=== PATIENT | male | born 1950 | race Caucasian/White ===

== ENCOUNTER 2017-04-10 18:27 | Emergency (ER) | payer OTHER ==
--- NOTE | 2017-04-10 19:22 | ER Document Report ---
ED Medical Screen (RME) - General Chief Complaint: Abnormal Lab Results Stated Complaint: ABNORMAL LABS Time Seen by Provider: 04/10/17 19:07 Mode of Arrival: Ambulatory Information source: Patient Notes: Patient had routine labs drawn at [facility] in [place] in preparation for cardiac catheterization at the [facility] next week. He was called by the apron worker on his way home and told that his hemoglobin was 7 no she go to emergency department immediately to be evaluated for possibly life-threatening bleeding. Patient reports she's had shortness of breath with exertion and generalized weakness gradually worsening for at least 3 months. Patient reports about 6 months ago he was on hospice and palliative care for what sounds like an end- stage cardiac myopathy and cirrhosis reports he got better and is not on hospice anymore. He reports apron worker with thinking he might need multiple cardiac stents placed. He reports has not had any blood work done in several months. He denies hematemesis, mattress, melena, chest pain, or abdominal pain. Not aware of any bleeding anywhere Physical exam Well-developed well-nourished male alert tachypnea, talking Skin warm and dry Ambulates with walker with no assistance TRAVEL OUTSIDE OF THE [place] IN LAST 30 DAYS: No - Related Data Allergies/Adverse Reactions: No Known Allergies Allergy (Unverified 09/23/16 01:06) Past Medical History - Past Medical History Cardiac Medical History: Reports: Hx Congestive Heart Failure, Hx Hypercholesterolemia, Hx Peripheral Vascular Disease Denies: Hx DVT, Hx Heart Attack, Hx Pulmonary Embolism Pulmonary Medical History: Denies: Hx Asthma, Hx COPD Neurological Medical History: Denies: Hx Seizures Endocrine Medical History: Denies: Hx Diabetes Mellitus Type 1, Hx Diabetes Mellitus Type 2, Hx Hyperthyroidism, Hx Hypothyroidism Renal/ Medical History: Denies: Hx Peritoneal Dialysis GI Medical History: Reports: Hx Cirrhosis - ETOH, Hx Gastroesophageal Reflux Disease. Denies: Hx Hepatitis Musculoskeltal Medical History: Denies Hx Arthritis Psychiatric Medical History: Reports: Hx Post Traumatic Stress Disorder Infectious Medical History: Denies: Hx Hepatitis - Immunizations Hx Diphtheria, Pertussis, Tetanus Vaccination: Yes Physical Exam - Vital signs Vitals: Temp Pulse Resp BP Pulse Ox 98.0 F 94 20 98/68 L 97 04/10/17 18:55 04/10/17 18:55 04/10/17 18:55 04/10/17 18:55 04/10/17 18:55 Course - Vital Signs Vital signs: Temp Pulse Resp BP Pulse Ox 98.0 F 94 20 98/68 L 97 04/10/17 18:55 04/10/17 18:55 04/10/17 18:55 04/10/17 18:55 04/10/17 18:55 - Laboratory Result Diagrams: 04/10/17 19:10 04/10/17 19:10
[2017-04-10 19:29] LABS: HGB HCT DIFFERENCE -1.6; MEAN CORPUSCULAR HEMOGLOBIN 22.2 pg (27.0-33.4); MEAN CORPUSCULAR VOLUME 72 fl (80-97); RED BLOOD COUNT 3.49 10^6/uL (4.35-5.55); RED CELL DISTRIBUTION WIDTH 22.5 % (11.5-14.0); WHITE BLOOD COUNT 6.6 10^3/uL (4.0-10.5)
[2017-04-10 19:32] LABS: PROTHROMBIN TIME 17.5 SEC (11.4-15.4)
[2017-04-10 19:33] LABS: PARTIAL THROMBOPLASTIN TIME 39.8 SEC (23.5-35.8)
[2017-04-10 19:45] LABS: ALANINE AMINOTRANSFERASE 25 U/L (21-72); ALBUMIN 2.9 g/dL (3.5-5.0); ALKALINE PHOSPHATASE 86 U/L (38-126); ANION GAP 8 (5-19); ASPARTATE AMINO TRANSFERASE 32 U/L (17-59); BILIRUBIN,DIRECT 0.6 mg/dL (0.0-0.4); BILIRUBIN,TOTAL 1.9 mg/dL (0.2-1.3); BLOOD UREA NITROGEN 9 mg/dL (7-20); CALCIUM 8.8 mg/dL (8.4-10.2); CARBON DIOXIDE 25 mmol/L (22-30); CHLORIDE 106 mmol/L (98-107); CREATINE KINASE 65 U/L (55-170); CREATININE RESULT 0.94 mg/dL (0.52-1.25); GLUCOSE 75 mg/dL (75-110); LIPASE 154.7 U/L (23-300); POTASSIUM 3.8 mmol/L (3.6-5.0); SODIUM 138.7 mmol/L (137-145); TOTAL PROTEIN 6.8 g/dL (6.3-8.2)
[2017-04-10 19:57] LABS: CREATINE KINASE MB 2.17 ng/mL (<4.55)
[2017-04-10 20:03] LABS: HEMOGLOBIN 7.8 g/dL (13.5-17.0)
[2017-04-10 20:06] LABS: TROPONIN I 0.072 ng/mL
[2017-04-10 20:09] LABS: BAND NEUTROPHILS % (MANUAL) 1 % (3-5); BASOPHILS % (MANUAL) 1 % (0-2); EOSINOPHILS % (MANUAL) 2 % (0-6); LYMPHOCYTES % (MANUAL) 14 % (13-45); TOTAL CELLS COUNTED 100
[2017-04-10 20:11] LABS: ANISOCYTOSIS 3+; HYPOCHROMASIA 1+; MICROCYTOSIS 1+; PLATELET CLUMPS PRESENT
[2017-04-10] MEDS ORDERED: NORMAL SALINE 250 ML IV PRN (20:13)
--- NOTE | 2017-04-10 20:43 | ER Document Report ---
ED General - General Mode of Arrival: Ambulatory Information source: Patient TRAVEL OUTSIDE OF THE [place] IN LAST 30 DAYS: No - HPI Patient complains to provider of: Generalized weakness Onset: Other - 3 months ago Associated symptoms: Other - see notes above <AGATHA HARDEN - Last Filed: 04/10/17 21:23> <LAUREN NORIEGA - Last Filed: 04/10/17 23:01> - General Chief Complaint: Abnormal Lab Results Stated Complaint: ABNORMAL LABS Time Seen by Provider: 04/10/17 19:07 Notes: 67 year old male with history of CHF, hyperlipidemia, peripheral vascular disease, GERD, PTSD, and alcoholic cirrhosis presents to the ED complaining of generalized weakness that started 3 months ago. Today, the patient was at a [facility] in [place] for catheterization pre-op where blood was drawn. On the way home, the patient received a call informing him that his hemoglobin was low and to check himself into the closest ED. Patient reports shortness of breath with exertion when walking to the mailbox. Patient has a history of devries caval shunt and TIPS (Transjugular intrahepatic portosystemic shunt) secondary to his liver cirrhosis. Patient reports that he checks his stool regularly and has not noticed any blood. Patient was on hospice for cardiac myopathy and liver cirrhosis 6 months ago. (AGATHA HARDEN) - Related Data Allergies/Adverse Reactions: No Known Allergies Allergy (Unverified 09/23/16 01:06) Past Medical History - General Information source: Patient - Social History Smoking Status: Unknown if Ever Smoked Family History: CAD Patient has suicidal ideation: No Patient has homicidal ideation: No - Past Medical History Cardiac Medical History: Reports: Hx Congestive Heart Failure, Hx Hypercholesterolemia, Hx Peripheral Vascular Disease GI Medical History: Reports: Hx Cirrhosis - ETOH, Hx Gastroesophageal Reflux Disease Psychiatric Medical History: Reports: Hx Post Traumatic Stress Disorder Infectious Medical History: Denies: Hx Hepatitis Past Surgical History: Reports: Other - TIPS (Transjugular intrahepatic portosystemic shunt) and Devries Caval shunt - Immunizations Hx Diphtheria, Pertussis, Tetanus Vaccination: Yes <AGATHA HARDEN - Last Filed: 04/10/17 21:23> Review of Systems - Review of Systems Constitutional: See HPI, Weakness EENT: No symptoms reported Cardiovascular: No symptoms reported Respiratory: See HPI, Short of breath - with exertion Gastrointestinal: No symptoms reported Genitourinary: No symptoms reported Male Genitourinary: No symptoms reported Musculoskeletal: No symptoms reported Skin: No symptoms reported Hematologic/Lymphatic: No symptoms reported Neurological/Psychological: No symptoms reported -: Yes All other systems reviewed and negative <AGATHA HARDEN - Last Filed: 04/10/17 21:23> Physical Exam - General General appearance: Alert In distress: None - HEENT Head: Normocephalic, Atraumatic Eyes: Normal Extraocular movements intact: Yes Pupils: PERRL - Respiratory Respiratory status: No respiratory distress Breath sounds: Normal - Cardiovascular Rhythm: Regular Heart sounds: Normal auscultation - Abdominal Inspection: Normal Distension: No distension Tenderness: Nontender - Rectal Tenderness: No Stool: Heme negative, Other - No stool is visualized. Hemorrhoids: None. No: Anal fissure - Back Back: Normal - Extremities General upper extremity: Normal inspection, Normal ROM General lower extremity: Normal inspection, Normal ROM - Neurological Neuro grossly intact: Yes - Psychological Associated symptoms: Normal affect, Normal mood - Skin Skin Temperature: Warm Skin Moisture: Dry Skin Color: Normal <AGATHA HARDEN - Last Filed: 04/10/17 21:23> Course - Laboratory Result Diagrams: 04/10/17 19:10 04/10/17 19:10 <AGATHA HARDEN - Last Filed: 04/10/17 21:23> - Laboratory Result Diagrams: 04/10/17 19:10 04/10/17 19:10 - EKG Interpretation by De EKG shows normal: Sinus rhythm, Hartly, ST-T Waves. abnormal: Intervals - Prolonged QT interval, QRS Complexes - Borderline inferior Q waves Rate: Normal - 85 Rhythm: NSR, Other - A single Sinus pause/arrest with junctional escape P Waves: LAE When compared to previous EKG there are: No significant change <LAUREN NORIEGA - Last Filed: 04/10/17 23:01> - Re-evaluation Re-evalutation: 04/10/17 23:00 The patient had lab work done at the [facility] in [place] today, after he had left come home he was called and told to go immediately to an emergency room due to low hemoglobin level. Workup here is found that this is a chronic iron deficiency anemia which should've been evident if they had compared today' s CBC with his prior lab work. Anemia studies were done showing normal levels of ferritin, folate, vitamin B 12. Extremely low serum iron levels. (LAUREN NORIEGA) - Vital Signs Vital signs: Temp Pulse Resp BP Pulse Ox 98.0 F 94 20 98/68 L 97 04/10/17 18:55 04/10/17 18:55 04/10/17 18:55 04/10/17 18:55 04/10/17 18:55 - Laboratory Laboratory results interpreted by me: 04/10/17 04/10/17 04/10/17 19:10 19:10 19:10 RBC 3.49 L Hgb 7.8 L Hct 25.0 L MCV 72 L MCH 22.2 L MCHC 31.0 L RDW 22.5 H Band Neutrophils % 1 L Monocytes % (Manual) 1 L PT 17.5 H APTT 39.8 H Iron Ferritin Total Bilirubin 1.9 H Direct Bilirubin 0.6 H NT-Pro-B Natriuret Pep Albumin 2.9 L Vitamin B12 Crossmatch 04/10/17 04/10/17 04/10/17 19:10 19:10 20:24 RBC Hgb Hct MCV MCH MCHC RDW Band Neutrophils % Monocytes % (Manual) PT APTT Iron 13.3 L Ferritin 15.20 L Total Bilirubin Direct Bilirubin NT-Pro-B Natriuret Pep 2950 H Albumin Vitamin B12 970.0 H Crossmatch See Detail Discharge <AGATHA HARDEN - Last Filed: 04/10/17 21:23> <LAUREN NORIEGA - Last Filed: 04/10/17 23:01> - Discharge Clinical Impression: Iron deficiency anemia Qualifiers: Iron deficiency anemia type: unspecified iron deficiency Qualified Code(s): D50.9 - Iron deficiency anemia, unspecified Condition: Stable Disposition: HOME, SELF-CARE Additional Instructions: Anemia, Iron Deficiency: You have anemia (a lower than normal amount of red blood cells). Our tests show it's due to lack of iron in your body. In infants and children, iron deficiency is usually due to lack of iron in the diet. In adults, it's most often caused by blood loss (heavy periods or intestinal bleeding) or by . If the cause of iron deficiency is not clear, we evaluate for hidden intestinal bleeding. Another possible cause is failure to absorb iron properly. Iron-deficiency is treated with iron supplements. Iron pills can upset your stomach and cause constipation. Taking it with food decreases nausea. Expect the stool to become darker (but not black). Taking iron with a juice high in vitamin C (orange juice, tomato juice) increases absorption. You can increase your dietary iron by eating liver, oysters, and lean beef ; wheat germ, peas, and lentils; and molasses, dried prunes, spinach, and broccoli. Contact the doctor at once if you note black or tarry-looking stools, bloody vomiting, shortness of breath, chest pain, or faintness. TAKE THE IRON SUPPLEMENTS PRESCRIBED. FOLLOW UP WITH YOUR DOCTOR TO MONITOR YOUR IRON AND HEMOGLOBIN LEVELS. RETURN TO THE EMERGENCY ROOM IF ANY NEW OR WORSENING SYMPTOMS. Prescriptions: Ferrous Sulfate [Albafort] 325 mg PO DAILY #100 tablet Scribe Attestation: 04/10/17 22:58 I personally performed the services described in the documentation, reviewed and edited the documentation which was dictated to the scribe in my presence, and it accurately records my words and actions. (LAUREN NORIEGA) Scribe Documentation - Scribe Written by Dipika:: Dipika Johnson, 04/10/[id number] acting as scribe for :: Jett <AGATHA HARDEN - Last Filed: 04/10/17 21:23>
[2017-04-10] MEDS ORDERED: FERROUS SULFATE 325 MG TABLET PO ONE (23:01)
[2017-04-10 23:03] VITALS: BP 101/68
--- NOTE | 2017-04-10 23:35 | EKG REPORT ---
SEVERITY:- ABNORMAL ECG - SINUS RHYTHM PROBABLE LEFT ATRIAL ABNORMALITY BORDERLINE INFERIOR Q WAVES PROLONGED QT INTERVAL VPC : Confirmed by: Jaxon Doran 10-Apr-2017 23:34:26
== END 2017-04-10 23:20 | disposition home or self-care (01) ==
LOC: MERGE 18:27 → ER 18:27
DX: D50.9 Iron deficiency anemia, unspecified (principal); R53.1 Weakness; R06.02 Shortness of breath; Z87.19 Personal history of other diseases of the digestive system; R94.31 Abnormal electrocardiogram [ECG] [EKG]
CPT/HCPCS: 36415; 71010; 80053; 82272; 82550; 82553; 82607; 82728; 82746; 83540; 83550; 83690; 83880; 84466; 84484; 85025; 85045; 85610; 85730; 93005; 93010; 99284

== ENCOUNTER 2017-05-27 23:01 | Inpatient (IN) | payer OTHER ==
[2017-05-28 00:28] LABS: ABSOLUTE EOSINOPHILS # (AUTO) 0.1 10^3/uL (0.0-0.6); ABSOLUTE LYMPHOCYTES (AUTO) 1.1 10^3/uL (0.5-4.7); ABSOLUTE MONOCYTES (AUTO) 0.8 10^3/uL (0.1-1.4); ABSOLUTE NEUT (AUTO) 3.3 10^3/uL (1.7-8.2); BASOPHILS % (AUTO) 0.8 % (0-2); EOSINOPHILS % (AUTO) 2.3 % (0-6); HEMATOCRIT 41.5 % (37.9-51.0); HGB HCT DIFFERENCE -2.5; LYMPHOCYTES % (AUTO) 20.1 % (13-45); MEAN CORPUSCULAR HEMOGLOBIN 27.7 pg (27.0-33.4); MEAN CORPUSCULAR HGB CONC 31.4 g/dL (32.0-36.0); MEAN CORPUSCULAR VOLUME 88 fl (80-97); MONOCYTES % (AUTO) 14.9 % (3-13); RED BLOOD COUNT 4.71 10^6/uL (4.35-5.55); RED CELL DISTRIBUTION WIDTH 30.3 % (11.5-14.0); SEGMENTED NEUTROPHILS % (AUTO) 61.9 % (42-78); WHITE BLOOD COUNT 5.4 10^3/uL (4.0-10.5)
[2017-05-28 00:32] LABS: ALANINE AMINOTRANSFERASE 30 U/L (21-72); ALKALINE PHOSPHATASE 93 U/L (38-126); ANION GAP 10 (5-19); ASPARTATE AMINO TRANSFERASE 40 U/L (17-59); BILIRUBIN,DIRECT 0.3 mg/dL (0.0-0.4); BILIRUBIN,TOTAL 1.7 mg/dL (0.2-1.3); BLOOD UREA NITROGEN 10 mg/dL (7-20); CALCIUM 8.9 mg/dL (8.4-10.2); CARBON DIOXIDE 18 mmol/L (22-30); CHLORIDE 111 mmol/L (98-107); CREATININE RESULT 0.93 mg/dL (0.52-1.25); GLUCOSE 85 mg/dL (75-110); POTASSIUM 4.3 mmol/L (3.6-5.0); SODIUM 138.7 mmol/L (137-145); TOTAL PROTEIN 6.9 g/dL (6.3-8.2)
[2017-05-28] MEDS ORDERED: LACTULOSE SYRUP 20 GM/30 ML UDCUP PO ONE ×2 (00:33→15:30)
--- NOTE | 2017-05-28 00:36 | ER Document Report ---
ED General - General Chief Complaint: Altered Mental Status Stated Complaint: ALTERED MENTAL STATUS Time Seen by Provider: 05/27/17 23:50 Notes: Patient is a 67-year-old male with past medical history of congestive heart failure, liver cirrhosis with a history of intermittent altered mental status although apparently is normally alert and oriented 3 who presents with his for 2 days of increasingly erratic behavior. Patient himself is unable to provide any meaningful history due to his level of confusion. states that he was trying to brush his teeth today with a razor blade, trying to eat shaving cream, [place] on the floor, TRAVEL OUTSIDE OF THE [place] IN LAST 30 DAYS: No - Related Data Allergies/Adverse Reactions: bee stings Allergy (Uncoded 01/03/15 12:03) Past Medical History - General Information source: Relative - Social History Smoking Status: Unknown if Ever Smoked Chew tobacco use (# tins/day): No Drug Abuse: None Lives with: Spouse/Significant other Family History: CAD, Reviewed & Not Pertinent - Past Medical History Cardiac Medical History: Reports: Hx Congestive Heart Failure, Hx Hypercholesterolemia, Hx Hypertension, Hx Peripheral Vascular Disease Denies: Hx DVT, Hx Heart Attack, Hx Pulmonary Embolism Pulmonary Medical History: Denies: Hx Asthma, Hx COPD Neurological Medical History: Denies: Hx Seizures Endocrine Medical History: Denies: Hx Diabetes Mellitus Type 1, Hx Diabetes Mellitus Type 2, Hx Hyperthyroidism, Hx Hypothyroidism Renal/ Medical History: Denies: Hx Peritoneal Dialysis GI Medical History: Reports: Hx Cirrhosis, Hx Gastroesophageal Reflux Disease. Denies: Hx Hepatitis Musculoskeltal Medical History: Reports Hx Arthritis Psychiatric Medical History: Reports: Hx Post Traumatic Stress Disorder Infectious Medical History: Denies: Hx Hepatitis Past Surgical History: Reports: Hx Bowel Surgery - Hernia repair, Hx Inguinal Hernia, Hx Orthopedic Surgery - left knee, Hx Vascular Surgery, Other - TIPS ( Transjugular intrahepatic portosystemic shunt) and Devries Caval shunt - Immunizations Hx Diphtheria, Pertussis, Tetanus Vaccination: Yes Review of Systems - Review of Systems -: Yes ROS unobtainable due to patient's medical condition Physical Exam - Vital signs Vitals: Temp Pulse Resp BP Pulse Ox 98.1 F 95 18 120/77 100 05/27/17 23:11 05/27/17 23:11 05/27/17 23:11 05/27/17 23:11 05/27/17 23:11 Interpretation: Normal Notes: PHYSICAL EXAMINATION: GENERAL: Chronically ill in appearance but in no acute distress HEAD: Atraumatic, normocephalic. EYES: Pupils equal round and reactive to light, extraocular movements intact, sclera anicteric, conjunctiva are normal. ENT: nares patent, oropharynx clear without exudates. Dry mucous membranes. NECK: Normal range of motion, supple without lymphadenopathy LUNGS: Breath sounds clear to auscultation bilaterally and equal. No wheezes rales or rhonchi. HEART: Regular rate and rhythm without murmurs ABDOMEN: Soft, nontender, normoactive bowel sounds. No guarding, no rebound. No masses appreciated. EXTREMITIES: Normal range of motion, no pitting or edema. No cyanosis. NEUROLOGICAL: No focal neurological deficits. Moves all extremities spontaneously and on command. PSYCH: Oriented only to person. Somewhat lethargic SKIN: Warm, Dry, normal turgor, no rashes or lesions noted. Course - Re-evaluation Re-evalutation: 05/28/17 00:35 Patient presents with altered mental status the setting of liver cirrhosis and congestive heart failure, currently on outpatient palliative management. It appears the patient is likely not been taking his lactulose over the last several days has become progressively confused in the setting of probable hyperammonemia. Will obtain labs, CT the head, chest x-ray, and reassess. 05/28/17 02:19 Labs overall unremarkable, ammonia continues to be pending. CT the head unremarkable. Chest x-ray is clear. Patient remains acutely confused. I discussed this case with Dr. Victor Hugo Saavedra who will admit to the hospital. - Vital Signs Vital signs: Temp Pulse Resp BP Pulse Ox 98.1 F 95 18 120/77 100 05/27/17 23:11 05/27/17 23:46 05/27/17 23:46 05/27/17 23:46 05/27/17 23:46 - Laboratory Result Diagrams: 05/28/17 00:05 05/28/17 00:05 Laboratory results interpreted by me: 05/28/17 05/28/17 00:05 00:05 Hgb 13.0 L MCHC 31.4 L RDW 30.3 H Monocytes % 14.9 H Chloride 111 H Carbon Dioxide 18 L Total Bilirubin 1.7 H Albumin 3.0 L - Diagnostic Test Radiology reviewed: Image reviewed, Reports reviewed Radiology results interpreted by me: 05/28/17 02:18 CT head: No acute intracranial bleed Chest x-ray: No acute infiltrate or pneumothorax Discharge - Discharge Clinical Impression: Hepatic encephalopathy Cirrhosis Qualifiers: Hepatic cirrhosis type: alcoholic cirrhosis Ascites presence: with ascites Qualified Code(s): K70.31 - Alcoholic cirrhosis of liver with ascites Altered mental status Qualifiers: Altered mental status type: delirium Qualified Code(s): R41.0 - Disorientation , unspecified Condition: Fair Disposition: ADMITTED INPATIENT Admitting Provider: Hospitalist - [facility] Admitted: Telemetry
[2017-05-28 00:50] LABS: ANISOCYTOSIS 3+; BURR CELLS 1+; OVALOCYTES 1+; POIKILOCYTOSIS 1+; TARGET CELLS 1+; TEAR DROP CELLS SLIGHT
--- NOTE | 2017-05-28 02:06 | RADIOLOGY REPORT (SQ) ---
EXAM DESCRIPTION: CT HEAD WITHOUT COMPLETED DATE/TIME: 05/28/2017 1:34 am REASON FOR STUDY: ams COMPARISON: None. TECHNIQUE: Axial images acquired through the brain without intravenous contrast. Images reviewed wi th bone, brain and subdural windows. Images stored on PACS. All CT scanners at this facility use dose modulation, iterative reconstruction, and/or weight based d osing when appropriate to reduce radiation dose to as low as reasonably achievable (ALARA). [facility]: Dose Right [facility]: CareDose [facility]: Dose Right [facility]: Teradose 4D [facility]: Smart I-Shake RADIATION DOSE: Up-to-date CT equipment and radiation dose reduction techniques were employed. CTDIv ol: 64.6 mGy. DLP: 1163 mGy-cm. mGy. LIMITATIONS: Mild motion artifact. FINDINGS: VENTRICLES: Normal size and contour. CEREBRUM: No masses. No hemorrhage. No midline shift. Normal rodriges/white matter differentiation. N o evidence for acute infarction. Mild asymmetric white matter microangiopathy pattern. CEREBELLUM: No masses. No hemorrhage. No alteration of density. No evidence for acute infarction. EXTRAAXIAL SPACES: No fluid collections. No masses. Atherosclerosis. ORBITS AND GLOBE: No intra- or extraconal masses. Normal contour of globe without masses. CALVARIUM: No fracture. PARANASAL SINUSES: No fluid or mucosal thickening. SOFT TISSUES: No mass or hematoma. OTHER: No other significant finding. IMPRESSION: No acute findings. Mild asymmetric white matter microangiopathy pattern. Other white m atter processes cannot be excluded. Consider MRI correlation/surveillance. TECHNICAL DOCUMENTATION: JOB ID: [id number] Quality ID # [id number]: Final reports with documentation of one or more dose reduction techniques (e.g., Au tomated exposure control, adjustment of the mA and/or kV according to patient size, use of iterative reconstruction technique) 2010 [employer]- All Rights Reserved
--- NOTE | 2017-05-28 02:11 | RADIOLOGY REPORT (SQ) ---
EXAM DESCRIPTION: CHEST SINGLE VIEW COMPLETED DATE/TIME: 05/28/2017 1:36 am REASON FOR STUDY: ams COMPARISON: 01/24/2009 EXAM PARAMETERS: NUMBER OF VIEWS: One view. TECHNIQUE: Single frontal radiographic view of the chest acquired. RADIATION DOSE: NA LIMITATIONS: None. FINDINGS: LUNGS AND PLEURA: Mild interstitial markings. Small linear atelectasis -scar of bilateral lower lungs, left more than right. MEDIASTINUM AND HILAR STRUCTURES: No masses. Contour normal. HEART AND VASCULAR STRUCTURES: Heart normal in size. Atherosclerosis. BONES: No acute findings. HARDWARE: None in the chest. OTHER: No other significant finding. IMPRESSION: New small atelectasis or scar of the right lower lobe. Chronic moderate atelectasis or scar of the left lower lobe. Mild chronic interstitial lung disease pattern. TECHNICAL DOCUMENTATION: JOB ID: [id number]
[2017-05-28] MEDS ORDERED: IPRATROPIUM/ALBUTEROL 0.5-2.5 MG/3 ML AMPUL NEB PRN (02:37)
[2017-05-28] MEDS ORDERED: MAG HYDROX/AL HYDROX/SIMETH SUSP 30 ML UDCUP PO ONE (02:40)
--- NOTE | 2017-05-28 02:49 | PDOC H&P ---
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 He been in his usual state of health until approximately 24 hours prior to presentation noted by his to have severe delirium eating shaving cream and shaving his teeth. She believes he is not taking his lactulose regularly and without bowel movement for approximately 48 hours. In the emergency room he has not unremarkable biochemical workup, urine drug screen and ammonia level is pending. No other recent change in medications though he has consumed a high protein diet over the last few days. Past Medical History Cardiac Medical History: Reports: Congestive Heart Failure, Hyperlipidema, Hypertension, Peripheral Vascular Disease Denies: DVT, Myocardial Infarction, Pulmonary Embolism Pulmonary Medical History: Denies: Asthma, Chronic Obstructive Pulmonary Disease (COPD) Neurological Medical History: Denies: Seizures Endocrine Medical History: Denies: Diabetes Mellitus Type 1, Diabetes Mellitus Type 2, Hyperthyroidism, Hypothyroidism GI Medical History: Reports: Cirrhosis, Gastroesophageal Reflux Disease Denies: Hepatitis Musculoskeltal Medical History: Reports: Arthritis Psychiatric Medical History: Reports: Post Traumatic Stress Disorder Past Surgical History Past Surgical History: Reports: Orthopedic Surgery - left knee, Vascular Surgery , Other - TIPS (Transjugular intrahepatic portosystemic shunt) and Devries Caval shunt Social History Information Source: POA - Power of Master Control Technician, [facility] Records Lives with: Spouse/Significant other Smoking Status: Unknown if Ever Smoked Frequency of Alcohol Use: None Drugs: None - Advance Directive Resuscitation Status: Do Not Resuscitate Family History Family History: CAD, Reviewed & Not Pertinent Parental Family History Reviewed: Yes Children Family History Reviewed: Yes Sibling(s) Family History Reviewed.: Yes Medication/Allergy Home Medications: Cephalexin Monohydrate [Keflex 500 mg Capsule] 500 mg PO QID #28 capsule Oxycodone HCl [Oxy-Ir 5 mg Tablet] 5 mg PO Q6 PRN #20 tablet 01/03/15 Ferrous Sulfate [Albafort] 325 mg PO DAILY #100 tablet 04/10/17 Allergies/Adverse Reactions: bee stings Allergy (Uncoded 01/03/15 12:03) Review of Systems ROS unobtainable: Due to mental status - Encephalopathic Physical Exam Vital Signs: Temp Pulse Resp BP Pulse Ox 98.1 F 85 18 135/76 H 98 05/27/17 23:11 05/28/17 00:00 05/28/17 00:00 05/28/17 00:00 05/28/17 00:00 Intake & Output 05/26/17 05/27/17 05/28/17 11:59 11:59 11:59 Weight 104.326 kg General appearance: PRESENT: cooperative, disheveled, mild distress, obese Head exam: PRESENT: atraumatic, normocephalic Eye exam: PRESENT: conjunctiva pink, EOMI, PERRLA. ABSENT: scleral icterus Ear exam: PRESENT: normal external ear exam Mouth exam: PRESENT: moist, tongue midline Neck exam: ABSENT: carotid bruit, JVD, lymphadenopathy, thyromegaly Respiratory exam: PRESENT: clear to auscultation graciela. ABSENT: rales, rhonchi, wheezes Cardiovascular exam: PRESENT: RRR. ABSENT: diastolic murmur, rubs, systolic murmur Pulses: PRESENT: normal dorsalis pedis pul Vascular exam: PRESENT: normal capillary refill GI/Abdominal exam: PRESENT: ascites, diminished bowel sounds, distended, hypoactive bowel sounds, soft. ABSENT: firm, guarding, hyperactive bowel sounds , tenderness Rectal exam: PRESENT: deferred Extremities exam: PRESENT: full ROM. ABSENT: calf tenderness, clubbing, pedal edema Neurological exam: PRESENT: alert, awake, oriented to person, oriented to place , oriented to time, oriented to situation, CN II-XII grossly intact. ABSENT: motor sensory deficit Psychiatric exam: PRESENT: agitated, unusual affect Focused psych exam: PRESENT: delusional, internal stimuli, restlessness Skin exam: PRESENT: dry, intact, warm. ABSENT: cyanosis, rash Results Laboratory Results: 05/28/17 00:05 05/28/17 00:05 05/28/17 05/28/17 05/28/17 00:05 00:05 01:22 WBC 5.4 RBC 4.71 Hgb 13.0 L Hct 41.5 MCV 88 MCH 27.7 MCHC 31.4 L RDW 30.3 H Plt Count 150 Seg Neutrophils % 61.9 Lymphocytes % 20.1 Monocytes % 14.9 H Eosinophils % 2.3 Basophils % 0.8 Absolute Neutrophils 3.3 Absolute Lymphocytes 1.1 Absolute Monocytes 0.8 Absolute Eosinophils 0.1 Absolute Basophils 0.0 Sodium 138.7 Potassium 4.3 Chloride 111 H Carbon Dioxide 18 L Anion Gap 10 BUN 10 Creatinine 0.93 Est GFR ( Amer) > 60 Est GFR (Non-Af Amer) > 60 Glucose 85 Calcium 8.9 Total Bilirubin 1.7 H AST 40 ALT 30 Alkaline Phosphatase 93 Ammonia Cancelled Total Protein 6.9 Albumin 3.0 L 05/28/17 02:12 WBC RBC Hgb Hct MCV MCH MCHC RDW Plt Count Seg Neutrophils % Lymphocytes % Monocytes % Eosinophils % Basophils % Absolute Neutrophils Absolute Lymphocytes Absolute Monocytes Absolute Eosinophils Absolute Basophils Sodium Potassium Chloride Carbon Dioxide Anion Gap BUN Creatinine Est GFR ( Amer) Est GFR (Non-Af Amer) Glucose Calcium Total Bilirubin AST ALT Alkaline Phosphatase Ammonia 68.7 H Total Protein Albumin Impressions: Chest X-Ray 05/27/17 23:50 IMPRESSION: New small atelectasis or scar of the right lower lobe. Chronic moderate atelectasis or scar of the left lower lobe. Mild chronic interstitial lung disease pattern. Head CT 05/27/17 23:50 IMPRESSION: No acute findings. Mild asymmetric white matter microangiopathy pattern. Other white matter processes cannot be excluded. Consider MRI correlation/surveillance. Assessment & Plan - Diagnosis (1) Cirrhosis Qualifiers: Hepatic cirrhosis type: alcoholic cirrhosis Ascites presence: with ascites Qualified Code(s): K70.31 - Alcoholic cirrhosis of liver with ascites Is this a current diagnosis for this admission?: YesPlan: Low protein hepatic diet, lactulose twice daily (2) Hepatic encephalopathy Is this a current diagnosis for this admission?: YesPlan: Resume lactulose twice daily Fleet enema as needed supportive care requiring sitter (3) Palliative care status Is this a current diagnosis for this admission?: YesPlan: Secondary to end-stage hepatic cirrhosis (4) DNR (do not resuscitate) Is this a current diagnosis for this admission?: YesPlan: Verified yellow certificate on the chart - Time Time Spent: 30 to 50 Minutes - Inpatient Certification Medical Necessity: Need Close Monitoring Due to Risk of Patient Decompensation
[2017-05-28] MEDS: HEPARIN SOD (PORCINE) 5,000 UNIT/ML 1 ML SYRINGE SUBCUT SCH ×3 (05:30→23:21)
[2017-05-28 06:31] LABS: ABSOLUTE BASOPHILS # (AUTO) 0.1 10^3/uL (0.0-0.2); ABSOLUTE EOSINOPHILS # (AUTO) 0.2 10^3/uL (0.0-0.6); ABSOLUTE LYMPHOCYTES (AUTO) 1.8 10^3/uL (0.5-4.7); ABSOLUTE NEUT (AUTO) 2.7 10^3/uL (1.7-8.2); BASOPHILS % (AUTO) 1.4 % (0-2); EOSINOPHILS % (AUTO) 3.9 % (0-6); HEMATOCRIT 37.6 % (37.9-51.0); HEMOGLOBIN 12.2 g/dL (13.5-17.0); LYMPHOCYTES % (AUTO) 30.4 % (13-45); MEAN CORPUSCULAR HEMOGLOBIN 28.4 pg (27.0-33.4); MEAN CORPUSCULAR HGB CONC 32.4 g/dL (32.0-36.0); MEAN CORPUSCULAR VOLUME 88 fl (80-97); MONOCYTES % (AUTO) 17.2 % (3-13); RED BLOOD COUNT 4.29 10^6/uL (4.35-5.55); RED CELL DISTRIBUTION WIDTH 30.1 % (11.5-14.0); SEGMENTED NEUTROPHILS % (AUTO) 47.1 % (42-78); WHITE BLOOD COUNT 5.8 10^3/uL (4.0-10.5)
[2017-05-28 06:33] LABS: ALANINE AMINOTRANSFERASE 27 U/L (21-72); ALBUMIN 2.6 g/dL (3.5-5.0); ALKALINE PHOSPHATASE 77 U/L (38-126); ANION GAP 6 (5-19); ASPARTATE AMINO TRANSFERASE 35 U/L (17-59); BILIRUBIN,DIRECT 0.4 mg/dL (0.0-0.4); BILIRUBIN,TOTAL 1.8 mg/dL (0.2-1.3); BLOOD UREA NITROGEN 9 mg/dL (7-20); CALCIUM 8.8 mg/dL (8.4-10.2); CARBON DIOXIDE 18 mmol/L (22-30); CHLORIDE 115 mmol/L (98-107); CREATININE RESULT 0.89 mg/dL (0.52-1.25); GLUCOSE 86 mg/dL (75-110); POTASSIUM 4.3 mmol/L (3.6-5.0); SODIUM 139.3 mmol/L (137-145); TOTAL PROTEIN 6.1 g/dL (6.3-8.2)
[2017-05-28 07:04] LABS: ANISOCYTOSIS 3+; OVALOCYTES 1+
[2017-05-28 07:05] LABS: BURR CELLS SLIGHT; POIKILOCYTOSIS 1+; TARGET CELLS 1+; TEAR DROP CELLS SLIGHT
--- NOTE | 2017-05-28 07:51 | EKG REPORT ---
SEVERITY:- ABNORMAL ECG - SINUS RHYTHM VENTRICULAR PREMATURE COMPLEX BORDERLINE INFERIOR Q WAVES BORDERLINE T ABNORMALITIES, LATERAL LEADS PROLONGED QT INTERVAL : Confirmed by: Jaxon Doran 28-May-2017 07:50:22
[2017-05-28] MEDS ORDERED: HYDROXYZINE HCL 10 MG TABLET PO PRN (14:22)
[2017-05-28] MEDS ORDERED: FERROUS SULFATE 325 MG TABLET PO ONE (15:00)
[2017-05-28] MEDS ORDERED: FUROSEMIDE 40 MG TABLET PO ONE (15:00)
[2017-05-28] MEDS ORDERED: ASPIRIN 81 MG TABLET, CHEWABLE PO ONE (15:00)
--- NOTE | 2017-05-28 15:08 | PROGRESS NOTE E ---
Progress Note NAME: LAUREN JAIMES : 1950 AGE: 67Y DATE: 05/28/2017 ROOM: 322 SUBJECTIVE: The patient was seen earlier today on rounds. The patient was asleep but wound awakened but would go right back to sleep. The patient has no report of vomiting nor diarrhea. The patient has been afebrile. His blood pressures have been in good range and the patient voiced he has no other concerns at this time. REVIEW OF SYSTEMS: Full review of systems cannot be obtained given the patient's mental status. MEDICATIONS: Medications have been reviewed. OBJECTIVE: GENERAL: The patient is a 67-year-old male who is currently asleep, will awaken, does not appear to be in any acute distress. VITAL SIGNS: As follows: Temperature is 98.8, pulse 73, respirations 21, blood pressure 106/65, oxygen saturation 100% on room air. SKIN: Warm and dry. Jaundiced. No rash. He is not diaphoretic. HEENT: Pupils are reactive. Conjunctiva is pale. NECK: No JVD. CARDIOVASCULAR SYSTEM: Heart is regular. There is no rub. CHEST: Diminished, symmetrical, unlabored. ABDOMEN: Firm, no area of focal tenderness. EXTREMITIES: No clubbing, cyanosis, trace bilateral lower extremity pitting edema. PSYCHIATRIC: Unable to full assess at this time. DIAGNOSTICS: Lab values are as follows: Hematology obtained on 05/28/2017; WBCs are 5.8, hemoglobin is 12.2, hematocrit is 37.6, platelet count is 141,000. Chemistry obtained on 05/28/2017: Sodium is 138, potassium 4.3, chloride is 115, carbon dioxide 18, BUN 9, creatinine is 0.89, glucose 86, calcium is , bilirubin is 1.8, AST 35, AST is 27, alkaline phosphatase 77, ammonia 68.7, total protein 3.1, albumin 2.6, TSH is 1.83. IMPRESSION AND PLAN: 1. HEPATIC ENCEPHALOPATHY. This appears to be secondary to hyperammonemia. The patient has been treated with lactulose. Will continue this and repeat ammonia in the a.m. and follow. 2. ALCOHOLIC CIRRHOSIS. Will continue home medications. 3. GASTROESOPHAGEAL REFLUX DISEASE. Will continue PPI therapy with alternate H2 receptor sherif. 4. DVT PROPHYLAXIS. Will continue subcu heparin. DISPOSITION: The patient is a DO NOT RESUSCITATE, DO NOT INTUBATE. Pending patient's symptomatology and diagnostic findings, will reevaluate in the a.m. Will repeat labs. Time spent on this followup including assessment, plan, physical examination, patient education, and review of previous records is 35 minutes. DICTATING PHYSICIAN: SHY BEATTY NP [id number] PHY#: [id number] ID: [id number] JOB#: [id number] ACCT: [id number] cc: > MTDD
[2017-05-28] MEDS: DOCUSATE SODIUM 100 MG CAPSULE PO SCH ×2 (16:15→18:24)
[2017-05-28] MEDS: LANSOPRAZOLE 30 MG TAB.RAP.DR PO SCH (16:15)
[2017-05-28] MEDS: FAMOTIDINE 20 MG TABLET PO SCH (16:16)
[2017-05-28] MEDS ORDERED: EPLERENONE 100 MG PO SCH (18:00)
[2017-05-28] MEDS ORDERED: AMILORIDE HCL 5 MG PO SCH (18:00)
[2017-05-28] MEDS ORDERED: (PENDING PHARMACY ID) (Ranitidine Hcl [Ranitidine Hcl] 150 MG) PO SCH (18:00)
[2017-05-28 18:17] LABS: APPEARANCE,URINE SLIGHTLY-CLOUDY; BILIRUBIN,URINE NEGATIVE (NEGATIVE); GLUCOSE, URINE NEGATIVE (NEGATIVE); KETONES,URINE NEGATIVE (NEGATIVE); LEUKOCYTE ESTERASE,URINE NEGATIVE (NEGATIVE); NITRITE,URINE NEGATIVE (NEGATIVE); PROTEIN,URINE NEGATIVE (NEGATIVE); URINE SPECIFIC GRAVITY 1.018
[2017-05-28] MEDS: EPLERENONE 25 MG TABLET PO SCH (18:24)
[2017-05-28 18:26] LABS: URINE BARBITURATES SCREEN NEGATIVE; URINE METHADONE SCREEN NEGATIVE; URINE PHENCYCLIDINE SCREEN NEGATIVE
[2017-05-28 18:41] LABS: URINE OPIATES LOW UNCONFIRMED POSITIVE
[2017-05-28] MEDS ORDERED: SIMVASTATIN 10 MG TABLET PO SCH (22:00)
[2017-05-28] MEDS ORDERED: (PENDING PHARMACY ID) (Simvastatin [Simvastatin] 20 MG) PO SCH (22:00)
[2017-05-28] MEDS: LACTULOSE SYRUP 20 GM/30 ML UDCUP PO SCH (23:21)
[2017-05-29] MEDS: HEPARIN SOD (PORCINE) 5,000 UNIT/ML 1 ML SYRINGE SUBCUT SCH (05:47)
[2017-05-29] MEDS: LACTULOSE SYRUP 20 GM/30 ML UDCUP PO SCH (05:47)
[2017-05-29 06:17] LABS: ALANINE AMINOTRANSFERASE 28 U/L (21-72); ALBUMIN 2.5 g/dL (3.5-5.0); ALKALINE PHOSPHATASE 82 U/L (38-126); ANION GAP 9 (5-19); ASPARTATE AMINO TRANSFERASE 40 U/L (17-59); BILIRUBIN,DIRECT 0.5 mg/dL (0.0-0.4); BILIRUBIN,TOTAL 1.5 mg/dL (0.2-1.3); BLOOD UREA NITROGEN 11 mg/dL (7-20); CALCIUM 8.5 mg/dL (8.4-10.2); CARBON DIOXIDE 17 mmol/L (22-30); CHLORIDE 113 mmol/L (98-107); CREATININE RESULT 1.01 mg/dL (0.52-1.25); GLUCOSE 88 mg/dL (75-110); POTASSIUM 4.4 mmol/L (3.6-5.0); SODIUM 138.5 mmol/L (137-145); TOTAL PROTEIN 5.8 g/dL (6.3-8.2)
[2017-05-29 06:29] LABS: ABSOLUTE EOSINOPHILS # (AUTO) 0.3 10^3/uL (0.0-0.6); ABSOLUTE LYMPHOCYTES (AUTO) 2.2 10^3/uL (0.5-4.7); BASOPHILS % (AUTO) 0.3 % (0-2); EOSINOPHILS % (AUTO) 5.9 % (0-6); HEMATOCRIT 37.6 % (37.9-51.0); HEMOGLOBIN 12.3 g/dL (13.5-17.0); HGB HCT DIFFERENCE -0.7; LYMPHOCYTES % (AUTO) 39.8 % (13-45); MEAN CORPUSCULAR HEMOGLOBIN 27.9 pg (27.0-33.4); MEAN CORPUSCULAR HGB CONC 32.7 g/dL (32.0-36.0); MEAN CORPUSCULAR VOLUME 86 fl (80-97); MONOCYTES % (AUTO) 18.1 % (3-13); RED CELL DISTRIBUTION WIDTH 29.9 % (11.5-14.0); SEGMENTED NEUTROPHILS % (AUTO) 35.9 % (42-78); WHITE BLOOD COUNT 5.5 10^3/uL (4.0-10.5)
[2017-05-29 06:30] LABS: ANISOCYTOSIS 4+; BURR CELLS 2+; HYPOCHROMASIA SLIGHT; OVALOCYTES SLIGHT; POIKILOCYTOSIS 1+; SCHISTOCYTES SLIGHT; TARGET CELLS SLIGHT; TEAR DROP CELLS SLIGHT; TOXIC GRANULATION SLIGHT
[2017-05-29] MEDS: FAMOTIDINE 20 MG TABLET PO SCH (09:37)
[2017-05-29] MEDS: DOCUSATE SODIUM 100 MG CAPSULE PO SCH (09:37)
[2017-05-29] MEDS: EPLERENONE 25 MG TABLET PO SCH (09:37)
[2017-05-29] MEDS: LANSOPRAZOLE 30 MG TAB.RAP.DR PO SCH (09:37)
[2017-05-29 09:53] VITALS: BP 122/72
[2017-05-29] MEDS ORDERED: (PENDING PHARMACY ID) (Multivitamin With Minerals [One Daily Plus Minerals] 1 EACH) PO SCH (10:00)
[2017-05-29] MEDS ORDERED: MULTIVITAMIN TABLET PO SCH (10:00)
[2017-05-29] MEDS ORDERED: FERROUS SULFATE 325 MG TABLET PO SCH (10:00)
[2017-05-29] MEDS ORDERED: RIFAXIMIN 550 MG TABLET PO SCH (10:00)
[2017-05-29] MEDS ORDERED: ASPIRIN 81 MG TABLET, CHEWABLE PO SCH (10:00)
[2017-05-29] MEDS ORDERED: FUROSEMIDE 40 MG TABLET PO SCH (10:00)
--- NOTE | 2017-05-29 16:23 | DISCHARGE SUMMARY E ---
Discharge Summary NAME: LAUREN JAIMES : 1950 AGE: 67Y ADMITTED: 05/28/2017 DISCHARGED: 05/29/2017 CODE STATUS: DO NOT RESUSCITATE, DO NOT INTUBATE, WITH PORTABLE DNR. DISCHARGE DIAGNOSES: Include: 1. Hepatic encephalopathy secondary to hyperammonemia. 2. Alcoholic cirrhosis. 3. Gastroesophageal reflux disease. DISCHARGE MEDICATIONS: Include: 1. Xifaxan 550 mg p.o. b.i.d. (60 tablets, 0 refills). 2. Lactulose 20 grams p.o. q. 8 hours (90 doses with 0 refills with a goal of 3 bowel movements a day). 3. Midamor 5 mg p.o. b.i.d. 4. Aspirin 81 mg p.o. b.i.d. 5. Eplerenone 100 mg p.o. b.i.d. 6. Ferrous sulfate 325 mg p.o. daily. 7. Lasix 40 mg p.o. daily. 8. Atarax 20 mg p.o. b.i.d. p.r.n. 9. Multivitamin 1 tablet p.o. daily. 10. Omeprazole 40 mg p.o. b.i.d. 11. Zantac 150 mg p.o. b.i.d. 12. Carafate 1 gram p.o. b.i.d. DIET: Low protein. ACTIVITY: As tolerated. HISTORY OF PRESENT ILLNESS: The patient is a 67-year-old male with a past medical history of alcoholic cirrhosis with a subsequent hepatic cirrhosis and recurrent encephalopathy. The patient presented to the emergency department with a chief complaint of altered mental status. The patient had been in his usual state of health until approximately 24 hours prior to presentation when he was noted by his to have severe delirium and the patient's believe he had not been taking his lactulose regularly, as the patient had not had a bowel movement within 48 hours prior to presentation. In the emergency department, the patient had an unremarkable workup other than hyperalbuminemia and was referred to the hospitalist for admission and management. HOSPITAL COURSE: The patient was admitted to continuous telemetry unit. The patient was given serial doses of lactulose and produced a number of bowel movements. The patient's ammonia, although it did not come down much, the patient's cognition improved significantly with his bowel movements. The patient had complete symptom resolution and is ready for discharge. The only intervention was the patient was resumed on his own home medications. The patient was also started on Xifaxan to help with the hyper ammonia. The patient is ready for discharge and has actually threatened to leave AMA. The patient does not have any previous documentation of actual congestive heart failure. DIAGNOSTIC DATA: Lab values are as follows: Hematology obtained on 05/29/2017: WBC's are 5.5, hemoglobin is 12.3, hematocrit is 37.6, platelet count is 119,000. Chemistries obtained on 05/29/2017: Sodium is 138, potassium 4.4, chloride is 113, carbon dioxide is 17, BUN 11, creatinine is 1.01, glucose 98, calcium is 8.5, bilirubin is 1.5, AST 40, ALT is 28, alk phos 82, ammonia is 55, total protein 5.8, albumin 2.5. TSH is 1.83. Urinalysis obtained on 05/28/2017: Color clyde, appearance slightly cloudy, pH is 5.0, specific gravity is 1.018. Protein negative, glucose negative, ketones negative, occult blood negative, nitrite negative, bilirubin negative, urobilinogen is negative, leukocyte esterase is negative, WBC's 4, RBC's 5, mucus occasional, ascorbic acid is negative. Toxicology obtained on 05/28/2017: Opioids are positive. Chest x-ray obtained on 05/27/2017 reveals new small atelectasis or scar of the right lower lobe. Chronic moderate atelectasis. Head CT obtained on 05/28/2017 reveals no acute findings, mild asymmetry of the white matter, microangiography pattern. EKG obtained on 05/27/2017 reveals sinus rhythm. PHYSICAL EXAMINATION: GENERAL: On examination, the patient is a well-developed, well-nourished 67-year-old male who is awake, alert. He is oriented to person, place, time, and situation. He is verbal and conversational. He does not appear to be in any acute distress. VITAL SIGNS: Temperature is 98.3, pulse 85, respirations 18, blood pressure is 123/72, oxygen saturation is 98% on room air. SKIN: Warm and dry. No rash. He is not diaphoretic. HEENT: Pupils equal, round, and reactive to light and accommodation. Conjunctivae pink. NECK: No JVD. CARDIOVASCULAR SYSTEM: Heart is regular. There is no murmur or rub. CHEST: Clear, symmetrical, unlabored. ABDOMEN: Soft, nontender, and nondistended. BACK: No CVA tenderness or sacral edema. EXTREMITIES: No clubbing, cyanosis, edema. DISCHARGE PLAN: The patient is advised to follow with his primary care provider within 1 week for hospital followup. The patient will resume his home health palliative care. TIME SPENT: Time spent on this discharge, including assessment, plan, physical examination, and patient education was 25 minutes. DICTATING PHYSICIAN: SHY BEATTY NP [id number] PHY#: [id number] ID: [id number] JOB#: [id number] ACCT: [id number] cc:VANE BUENROSTRO M.D. SHY BEATTY NP >
== END 2017-05-29 11:25 | disposition home health service (06) | DRG 442 ==
LOC: ER 23:01 → EH 05-28 02:37 → UNDOADMIN 05-28 02:54 → 3W 05-28 04:42
PROVIDERS: ADMIT Internal Medicine; ATTEND Internal Medicine
PROC: 3E0F73Z Introduction of Anti-inflammatory into Respiratory Tract, Via Natural or Artificial Opening (ICD-10-PCS; principal; 2017-05-28)
DX: K72.91 Hepatic failure, unspecified with coma (principal); E72.4 Disorders of ornithine metabolism; K70.31 Alcoholic cirrhosis of liver with ascites; K21.9 Gastro-esophageal reflux disease without esophagitis; I11.0 Hypertensive heart disease with heart failure; I50.9 Heart failure, unspecified; E78.5 Hyperlipidemia, unspecified; I73.9 Peripheral vascular disease, unspecified; M19.90 Unspecified osteoarthritis, unspecified site; F43.10 Post-traumatic stress disorder, unspecified; E78.00 Pure hypercholesterolemia, unspecified; Z51.5 Encounter for palliative care; Z91.030 Bee allergy status; Z66 Do not resuscitate; Z79.899 Other long term (current) drug therapy; Z82.49 Family history of ischemic heart disease and other diseases of the circulatory system
CPT/HCPCS: 36415; 70450; 71010; 80053; 80307; 81001; 82140; 84443; 85025; 93005; 93010; 99285; A9270-GY; J1644; J3490

== ENCOUNTER 2018-03-11 00:41 | Inpatient (IN) | payer OTHER ==
[2018-03-11] MEDS ORDERED: NORMAL SALINE 1000 ML 1,000 ML IV ONE (00:48)
[2018-03-11] MEDS ORDERED: CEFEPIME 2 GM/D5W RTU 2 GM/50 ML RTUPB IV ONE ×2 (00:48→01:26)
--- NOTE | 2018-03-11 01:09 | ER Document Report ---
ED General - General Stated Complaint: FEVER Time Seen by Provider: 03/11/18 00:45 Cannot obtain history due to: Altered mental status Notes: Patient is a 68-year-old male with a past medical history of alcoholic liver cirrhosis, hepatic encephalopathy, congestive heart failure, and COPD who presents with confusion and fever. reports that the patient has been increasingly confused throughout the day today. She was unaware that he had a fever until he arrived to the emergency department. Patient is very confused, unable to provide any meaningful history. The patient has history of similar presentations in the past secondary to hepatic encephalopathy. TRAVEL OUTSIDE OF THE [place] IN LAST 30 DAYS: No - Related Data Allergies/Adverse Reactions: bee venom protein (honey bee) Allergy (Unknown, Verified 05/28/17 14:48) bee stings Allergy (Uncoded 01/03/15 12:03) Past Medical History - General Information source: Relative Cannot obtain history due to: Altered mental status - Social History Smoking Status: Former Smoker Frequency of alcohol use: Former alcohol user Drug Abuse: None Lives with: Spouse/Significant other Family History: CAD, Reviewed & Not Pertinent - Past Medical History Cardiac Medical History: Reports: Hx Congestive Heart Failure, Hx Hypercholesterolemia, Hx Hypertension, Hx Peripheral Vascular Disease Denies: Hx DVT, Hx Heart Attack, Hx Pulmonary Embolism Pulmonary Medical History: Denies: Hx Asthma, Hx COPD Neurological Medical History: Denies: Hx Seizures Endocrine Medical History: Denies: Hx Diabetes Mellitus Type 1, Hx Diabetes Mellitus Type 2, Hx Hyperthyroidism, Hx Hypothyroidism Renal/ Medical History: Denies: Hx Peritoneal Dialysis GI Medical History: Reports: Hx Cirrhosis, Hx Gastroesophageal Reflux Disease. Denies: Hx Hepatitis Musculoskeltal Medical History: Reports Hx Arthritis Psychiatric Medical History: Reports: Hx Depression, Hx Post Traumatic Stress Disorder Infectious Medical History: Denies: Hx Hepatitis Past Surgical History: Reports: Hx Bowel Surgery - Hernia repair, Hx Inguinal Hernia, Hx Orthopedic Surgery - left knee, Hx Vascular Surgery, Other - TIPS ( Transjugular intrahepatic portosystemic shunt) and Devries Caval shunt - Immunizations Hx Diphtheria, Pertussis, Tetanus Vaccination: Yes Review of Systems - Review of Systems -: Yes ROS unobtainable due to patient's medical condition Physical Exam - Vital signs Vitals: Resp Pulse Ox 19 95 03/11/18 00:49 03/11/18 00:49 Interpretation: Tachycardic, Tachypneic, Febrile Notes: PHYSICAL EXAMINATION: GENERAL: Lethargic, confused, ill in appearance HEAD: Atraumatic, normocephalic. EYES: Pupils equal round and reactive to light, extraocular movements intact, sclera anicteric, conjunctiva are normal. ENT: nares patent, oropharynx clear without exudates. Moderately dry mucous membranes. NECK: Normal range of motion, supple without lymphadenopathy LUNGS: Rapid deep breathing. Breath sounds clear to auscultation bilaterally and equal. No wheezes rales or rhonchi. HEART: Regular tachycardia without murmurs ABDOMEN: Soft, nontender, normoactive bowel sounds. No guarding, no rebound. No masses appreciated. No fluid wave. EXTREMITIES: no pitting or edema. No cyanosis. NEUROLOGICAL: No focal neurological deficits. Moves all extremities spontaneously and on command. PSYCH: Oriented only to person. Quite lethargic SKIN: Warm, Dry, normal turgor, no rashes or lesions noted. Course - Re-evaluation Re-evalutation: 03/11/18 01:09 Patient presents febrile, tachycardic, mildly hypoxic, meet sepsis criteria time arrival. He is profoundly confused, thinks it is 1928. He is not able to provide any meaningful history. His signs and symptoms are most consistent with acute hepatic encephalopathy with associated sepsis with an unclear source at this time. Patient is critically ill, ill in appearance, very lethargic. He is currently protecting his airway but will need to be reassessed on regular intervals. Will obtain broad laboratories, begin broad-spectrum IV antibiotics , IV fluids, continue to reassess frequently. 03/11/18 01:54 Patient continues to be very lethargic although does wake to voice. Labs at this time point mostly unremarkable. His tachycardia is improved although he does require supplemental oxygenation to maintain his oxygen saturations above 92%. Chest x-ray without any evidence of acute infiltrate. Patient has no fluid wave on examination suggest that he would have spontaneous bacterial peritonitis. Awaiting cardiac markers. He has received cefepime and vancomycin. Cultures are pending. 03/11/18 02:21 Labs show hyperammonemia which is consistent with patient's presentation of hepatic encephalopathy. He has been given a dose of lactulose. His heart rate remains improved, pressure at . I am trying to avoid excessive fluid administration as patient does have a history of congestive heart failure with fluid overload in the past. Troponin is in the indeterminate range which patient has had in the past I do not suspect an acute myocardial infarction. Lactate is not significantly elevated is at 1.5. Will discuss with the hospitalist for admission. - Vital Signs Vital signs: Temp Pulse Resp BP Pulse Ox 101.2 F H 18 99/48 L 96 03/11/18 01:54 03/11/18 03:02 03/11/18 03:02 03/11/18 03:02 - Laboratory Result Diagrams: 03/11/18 01:15 03/11/18 01:15 Laboratory results interpreted by me: 03/11/18 03/11/18 03/11/18 01:15 01:15 01:15 RBC 3.80 L Hgb 13.1 L MCV 101 H MCH 34.5 H RDW 14.5 H Plt Count 120 L Lymphocytes % 9.8 L VBG pH VBG pCO2 Chloride 111 H Carbon Dioxide 20 L Total Bilirubin 2.2 H Direct Bilirubin 0.6 H Ammonia 55.8 H NT-Pro-B Natriuret Pep Total Protein 6.1 L Albumin 2.8 L Urine Protein Urine Blood Urine Urobilinogen 03/11/18 03/11/18 03/11/18 01:15 01:15 01:54 RBC Hgb MCV MCH RDW Plt Count Lymphocytes % VBG pH 7.49 H VBG pCO2 28.2 L Chloride Carbon Dioxide Total Bilirubin Direct Bilirubin Ammonia NT-Pro-B Natriuret Pep 2040 H Total Protein Albumin Urine Protein 30 H Urine Blood SMALL H Urine Urobilinogen 4.0 H - Diagnostic Test Radiology reviewed: Image reviewed, Reports reviewed Radiology results interpreted by me: 03/11/18 02:23 Chest x-ray: No acute infiltrate or pneumothorax - EKG Interpretation by Me Additional EKG results interpreted by me: 03/11/18 03:41 Normal sinus rhythm. Rate 86. No ST elevations or depressions. QTC is 469. Critical Care Note - Critical Care Note Total time excluding time spent on procedures (mins): 37 Comments: Critical care time spent obtaining history from patient or surrogate, discussions with consultants, development of treatment plan with patient or surrogate, evaluation of patient's response to treatment, examination of patient , ordering and performing treatments and interventions, ordering and review of laboratory studies, re-evaluation of patient's condition, ordering and review of radiographic studies and review of old charts Discharge - Discharge Clinical Impression: Hepatic encephalopathy, Respiratory distress Altered mental status Qualifiers: Altered mental status type: disorientation Qualified Code(s): R41.0 - Disorientation, unspecified Sepsis Qualifiers: Sepsis type: sepsis due to unspecified organism Qualified Code(s): A41.9 - Sepsis, unspecified organism Cirrhosis Qualifiers: Hepatic cirrhosis type: alcoholic cirrhosis Ascites presence: without ascites Qualified Code(s): K70.30 - Alcoholic cirrhosis of liver without ascites Condition: Fair Disposition: ADMITTED INPATIENT Admitting Provider: Hospitalist Unit Admitted: [facility]
[2018-03-11 01:32] LABS: ABSOLUTE BASOPHILS # (AUTO) 0.1 10^3/uL (0.0-0.2); ABSOLUTE MONOCYTES (AUTO) 1.2 10^3/uL (0.1-1.4); ABSOLUTE NEUT (AUTO) 7.8 10^3/uL (1.7-8.2); BASOPHILS % (AUTO) 0.7 % (0-2); EOSINOPHILS % (AUTO) 0.2 % (0-6); HEMATOCRIT 38.3 % (37.9-51.0); HEMOGLOBIN 13.1 g/dL (13.5-17.0); LYMPHOCYTES % (AUTO) 9.8 % (13-45); MEAN CORPUSCULAR HEMOGLOBIN 34.5 pg (27.0-33.4); MEAN CORPUSCULAR HGB CONC 34.3 g/dL (32.0-36.0); MEAN CORPUSCULAR VOLUME 101 fl (80-97); MONOCYTES % (AUTO) 12.2 % (3-13); PLATELET COUNT 120 10^3/uL (150-450); RED CELL DISTRIBUTION WIDTH 14.5 % (11.5-14.0); SEGMENTED NEUTROPHILS % (AUTO) 77.1 % (42-78); TOTAL CELLS COUNTED % (AUTO) 100 %; VENOUS BLOOD BASE EXCESS -1.2 mmol/L; VENOUS BLOOD HCO3 20.8 mmol/L (20-32); VENOUS BLOOD PCO2 28.2 mmHg (35-63); VENOUS BLOOD PH 7.49 (7.30-7.42); WHITE BLOOD COUNT 10.2 10^3/uL (4.0-10.5)
--- NOTE | 2018-03-11 01:34 | RADIOLOGY REPORT (SQ) ---
EXAM DESCRIPTION: CHEST SINGLE VIEW CLINICAL HISTORY: 68 years Male, fever, sob COMPARISON: None. NUMBER OF VIEWS/TECHNIQUE: 1/AP LIMITATIONS: Rotation. FINDINGS: Small bibasilar atelectasis-scar, prominent interstitium, normal cardiac silhouette, atherosclerosis, and intact bony thorax. IMPRESSION: Small bibasilar atelectasis or scar.
[2018-03-11 01:46] LABS: ALANINE AMINOTRANSFERASE 28 U/L (21-72); ALBUMIN 2.8 g/dL (3.5-5.0); ALKALINE PHOSPHATASE 81 U/L (38-126); ANION GAP 7 (5-19); ASPARTATE AMINO TRANSFERASE 39 U/L (17-59); BILIRUBIN,DIRECT 0.6 mg/dL (0.0-0.4); BILIRUBIN,TOTAL 2.2 mg/dL (0.2-1.3); BLOOD UREA NITROGEN 10 mg/dL (7-20); CALCIUM 8.4 mg/dL (8.4-10.2); CARBON DIOXIDE 20 mmol/L (22-30); CHLORIDE 111 mmol/L (98-107); GLUCOSE 102 mg/dL (75-110); SODIUM 138.2 mmol/L (137-145); TOTAL PROTEIN 6.1 g/dL (6.3-8.2)
[2018-03-11] MEDS ORDERED: VANCOMYCIN HCL INJ 1000 MG VIAL IV ONE (01:56)
[2018-03-11 02:01] LABS: TROPONIN I 0.053 ng/mL
[2018-03-11 02:16] LABS: APPEARANCE,URINE SLIGHTLY-CLOUDY; BILIRUBIN,URINE NEGATIVE (NEGATIVE); COLOR,URINE AMBER; GLUCOSE, URINE NEGATIVE (NEGATIVE); KETONES,URINE NEGATIVE (NEGATIVE); LEUKOCYTE ESTERASE,URINE NEGATIVE (NEGATIVE); NITRITE,URINE NEGATIVE (NEGATIVE); PROTEIN,URINE 30 mg/dL (NEGATIVE); URINE SPECIFIC GRAVITY 1.023
[2018-03-11] MEDS ORDERED: LACTULOSE SYRUP 20 GM/30 ML UDCUP PO ONE (02:21)
[2018-03-11] MEDS ORDERED: ONDANSETRON HCL INJ/PF 4 MG/2 ML SDV IV PRN (02:49)
[2018-03-11] MEDS ORDERED: ALBUTEROL SULFATE 0.083% NEB 2.5 MG/3 ML AMPUL NEB PRN (02:49)
--- NOTE | 2018-03-11 03:14 | PDOC H&P ---
History of Present Illness Admission Date/PCP: 03/11/18 02:38 History of Present Illness: LAUREN JAIMES is a 68 year old male patient brought his chief complaint of confusion and fever. Since patient is cognitively impaired he denies social history. He is obtained from the ER attending note and his . Per ER attending, patient presented febrile tachycardic mildly hypoxic meet sepsis criteria at the time of arrival. Patient is profoundly confused. Patient has a documented fever by EMS and and after he arrived at ER around 100.6. His ammonia level is moderately elevated and his BNP is 2400. His reports patient has had recurrent falls. There is no report of cough, chest pain or diaphoresis. No report of nausea, vomiting, abdominal pain or any urinary complaints. Of note patient is a known case of cirrhosis of the liver he is status post TIPS. Reportedly patient is complaining with his daily medications. Further detailed history and review of systems unobtainable Past Medical History Cardiac Medical History: Reports: Congestive Heart Failure, Hyperlipidema, Hypertension, Peripheral Vascular Disease Denies: DVT, Myocardial Infarction, Pulmonary Embolism Pulmonary Medical History: Denies: Asthma, Chronic Obstructive Pulmonary Disease (COPD) Neurological Medical History: Denies: Seizures Endocrine Medical History: Denies: Diabetes Mellitus Type 1, Diabetes Mellitus Type 2, Hyperthyroidism, Hypothyroidism GI Medical History: Reports: Cirrhosis, Gastroesophageal Reflux Disease Denies: Hepatitis Musculoskeltal Medical History: Reports: Arthritis Psychiatric Medical History: Reports: Depression, Post Traumatic Stress Disorder Past Surgical History Past Surgical History: Reports: Orthopedic Surgery - left knee, Vascular Surgery , Other - TIPS (Transjugular intrahepatic portosystemic shunt) and Devries Caval shunt Social History Smoking Status: Current Every Day Smoker Frequency of Alcohol Use: None Hx Recreational Drug Use: No Drugs: None Family History Family History: Reviewed & Not Pertinent, CAD Parental Family History Reviewed: Yes Children Family History Reviewed: Yes Sibling(s) Family History Reviewed.: Yes Medication/Allergy Home Medications: Amiloride HCl [Midamor 5 mg Tablet] 5 mg PO BID 05/28/17 Aspirin [Aspirin 81 mg Chewable Tablet] 81 mg PO DAILY 05/28/17 Eplerenone 100 mg PO BID 05/28/17 Ferrous Sulfate [Albafort] 325 mg PO DAILY 05/28/17 Furosemide [Lasix] 40 mg PO DAILY 05/28/17 Hydroxyzine HCl [Atarax 10 mg Tablet] 20 mg PO BID PRN 05/28/17 Multivitamin with Minerals [One Daily Plus Minerals] 1 each PO DAILY 05/28/17 Omeprazole 40 mg PO BID 05/28/17 Ranitidine HCl 150 mg PO BID 05/28/17 Sennosides/Docusate Sodium [Docusate Sodium-Senna Tablet] 2 each PO BID Sucralfate [Carafate 1 gm Tablet] 1 gm PO BID 05/28/17 Lactulose [Cephulac Syrup 20 gm/30 ml Udcup] 20 gm PO Q8 #90 udc 05/29/17 Rifaximin [Xifaxan 200 Mg Tablet] 550 mg PO BID #60 tablet 05/29/17 Allergies/Adverse Reactions: bee venom protein (honey bee) Allergy (Unknown, Verified 05/28/17 14:48) bee stings Allergy (Uncoded 01/03/15 12:03) Review of Systems ROS unobtainable: Due to mental status Physical Exam Vital Signs: Temp Pulse Resp BP Pulse Ox 101.2 F H 18 99/47 L 95 03/11/18 01:54 03/11/18 02:08 03/11/18 02:08 03/11/18 02:08 General appearance: PRESENT: mild distress Head exam: PRESENT: atraumatic, normocephalic Cardiovascular exam: PRESENT: RRR. ABSENT: diastolic murmur, rubs, systolic murmur GI/Abdominal exam: PRESENT: normal bowel sounds, soft. ABSENT: distended, guarding, mass, organolmegaly, rebound, tenderness Extremities exam: PRESENT: pedal edema, +2 edema Results Impressions: Chest X-Ray 03/11/18 00:47 IMPRESSION: Small bibasilar atelectasis or scar. Assessment & Plan - Diagnosis (1) Sepsis Qualifiers: Sepsis type: sepsis due to unspecified organism Qualified Code(s): A41.9 - Sepsis, unspecified organism Is this a current diagnosis for this admission?: Yes Plan: Patient has been started empirically on cefepime. We will adjust his antibiotics or escalate based on his clinical progress and culture and sensitivity. (2) Altered mental status Qualifiers: Altered mental status type: disorientation Qualified Code(s): R41.0 - Disorientation, unspecified Is this a current diagnosis for this admission?: Yes Plan: His altered mental status could be due to hepatic encephalopathy. I will increase the dose and frequency of his lactulose. I will continue his rifaximin. 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 Management as a #2 (4) Congestive heart failure Qualifiers: Heart failure type: systolic Is this a current diagnosis for this admission?: Yes Plan: Patient has been started on Lasix 40 mg IV twice a day. And will continue also his home medication. - Time Time Spent: 30 to 50 Minutes Within: within 72 hours - Inpatient Certification Medical Necessity: Need for IV Antibiotics
[2018-03-11] MEDS: LANSOPRAZOLE 30 MG TAB.RAP.DR PO SCH (06:09)
[2018-03-11] MEDS: HEPARIN SOD (PORCINE) 5,000 UNIT/ML 1 ML SYRINGE SUBCUT SCH ×3 (06:10→22:57)
[2018-03-11] MEDS: LACTULOSE SYRUP 20 GM/30 ML UDCUP PO SCH ×4 (06:10→23:48)
--- NOTE | 2018-03-11 07:28 | EKG REPORT ---
SEVERITY:- ABNORMAL ECG - SINUS RHYTHM INFERIOR INFARCT, AGE INDETERMINATE LATERAL LEADS ARE ALSO INVOLVED : Confirmed by: Héctor Garcia MD 11-Mar-2018 07:28:30
[2018-03-11] MEDS: FUROSEMIDE INJ/PF 40 MG/4 ML SDV IV SCH ×2 (10:31→22:54)
[2018-03-11] MEDS: CEFEPIME 1 GM/D5W RTU 1 GM/50 ML RTUPB IV SCH ×2 (10:33→22:57)
[2018-03-11] MEDS: RIFAXIMIN 550 MG TABLET PO SCH ×2 (10:36→18:34)
--- NOTE | 2018-03-11 17:24 | Progress Note ---
Provider Note Provider Note: The patient was seen this afternoon on rounds. He was admitted overnight, at 2 : [address] Gilmore, for sepsis, altered mental status, cirrhosis of the liver, and congestive heart failure. The patient overnight events, notes, and laboratory results were evaluated. The patient appears to have increased alertness, is conversational, though remains disoriented to time and situation. He is somnolent and quickly falls back asleep after being awoken. The patient's proBNP was noted to be elevated greater than 2000 and the patient was placed on IV furosemide 40 mg every 12 hours. Given the patient's history of cirrhosis status post TIPS, I have added spironolactone 25 mg p.o. daily. I am also ordered an echocardiogram as we do not have one on file and the patient is unable to relate to me if he is previously had the study done at an outside hospital. The patient's initial troponin was noted to be elevated at 0.053. Will continue to trend. This is likely a result of demand ischemia in the setting of CHF exacerbation and sepsis. Low threshold for consulting cardiology given the patient's relative hypotension and need for diuresis. Urine and blood cultures are pending. The patient has empirically been placed on cefepime which is continued. The patient has been afebrile since time of admission. Heart rate is appropriate and blood pressures are somewhat improved, though remain soft at 101 /65. Consider small IVF will boluses for hypotension. He has been upgraded from a medical bed to telemetry. Remaining plan as outlined by Dr. Gilmore in H&P.
[2018-03-11] MEDS: SUCRALFATE 1 GM TABLET PO SCH (18:34)
[2018-03-11] MEDS ORDERED: CEFEPIME 1 GM/D5W RTU 1 GM/50 ML RTUPB IV ONE (22:34)
[2018-03-12] MEDS: LANSOPRAZOLE 30 MG TAB.RAP.DR PO SCH (05:48)
[2018-03-12] MEDS: LACTULOSE SYRUP 20 GM/30 ML UDCUP PO SCH ×3 (05:48→22:15)
[2018-03-12] MEDS: HEPARIN SOD (PORCINE) 5,000 UNIT/ML 1 ML SYRINGE SUBCUT SCH ×3 (05:48→22:07)
[2018-03-12 07:14] LABS: ABSOLUTE BASOPHILS # (AUTO) 0.1 10^3/uL (0.0-0.2); ABSOLUTE EOSINOPHILS # (AUTO) 0.3 10^3/uL (0.0-0.6); ABSOLUTE LYMPHOCYTES (AUTO) 2.1 10^3/uL (0.5-4.7); ABSOLUTE MONOCYTES (AUTO) 1.5 10^3/uL (0.1-1.4); ABSOLUTE NEUT (AUTO) 4.5 10^3/uL (1.7-8.2); BASOPHILS % (AUTO) 0.8 % (0-2); EOSINOPHILS % (AUTO) 3.8 % (0-6); HEMATOCRIT 37.9 % (37.9-51.0); HEMOGLOBIN 12.7 g/dL (13.5-17.0); LYMPHOCYTES % (AUTO) 24.9 % (13-45); MEAN CORPUSCULAR HEMOGLOBIN 34.2 pg (27.0-33.4); MEAN CORPUSCULAR HGB CONC 33.5 g/dL (32.0-36.0); MEAN CORPUSCULAR VOLUME 102 fl (80-97); MONOCYTES % (AUTO) 17.9 % (3-13); PLATELET COUNT 125 10^3/uL (150-450); RED BLOOD COUNT 3.71 10^6/uL (4.35-5.55); RED CELL DISTRIBUTION WIDTH 15.1 % (11.5-14.0); SEGMENTED NEUTROPHILS % (AUTO) 52.6 % (42-78); TOTAL CELLS COUNTED % (AUTO) 100 %; WHITE BLOOD COUNT 8.5 10^3/uL (4.0-10.5)
[2018-03-12 07:30] LABS: ALANINE AMINOTRANSFERASE 33 U/L (21-72); ALBUMIN 2.8 g/dL (3.5-5.0); ALKALINE PHOSPHATASE 75 U/L (38-126); ANION GAP 5 (5-19); ASPARTATE AMINO TRANSFERASE 38 U/L (17-59); BILIRUBIN,DIRECT 0.3 mg/dL (0.0-0.4); BILIRUBIN,TOTAL 1.5 mg/dL (0.2-1.3); BLOOD UREA NITROGEN 11 mg/dL (7-20); CALCIUM 8.6 mg/dL (8.4-10.2); CARBON DIOXIDE 26 mmol/L (22-30); CHLORIDE 111 mmol/L (98-107); GLUCOSE 90 mg/dL (75-110); POTASSIUM 3.4 mmol/L (3.6-5.0); TOTAL PROTEIN 5.6 g/dL (6.3-8.2)
[2018-03-12 09:50] LABS: INTERNATIONAL RATION (INR) 1.38; PROTHROMBIN TIME 17.7 SEC (11.4-15.4)
[2018-03-12 09:51] LABS: PARTIAL THROMBOPLASTIN TIME 46.8 SEC (23.5-35.8)
[2018-03-12] MEDS: FUROSEMIDE INJ/PF 40 MG/4 ML SDV IV SCH (09:57)
[2018-03-12] MEDS: SUCRALFATE 1 GM TABLET PO SCH ×2 (09:58→17:31)
[2018-03-12] MEDS: RIFAXIMIN 550 MG TABLET PO SCH ×2 (09:58→17:32)
[2018-03-12] MEDS: CEFEPIME 1 GM/D5W RTU 1 GM/50 ML RTUPB IV SCH (09:59)
[2018-03-12] MEDS ORDERED: FERROUS SULFATE 325 MG TABLET PO SCH (10:00)
[2018-03-12] MEDS ORDERED: ASPIRIN 81 MG TABLET, ENT COATED PO SCH (10:00)
[2018-03-12] MEDS ORDERED: SPIRONOLACTONE 25 MG TABLET PO SCH (10:00)
--- NOTE | 2018-03-12 15:59 | PDOC PROGRESS REPORT ---
Subjective Progress Note for:: 03/12/18 Subjective:: The patient is a 68-year-old male with past medical history of CHF, hyperlipidemia, hypertension, PVD, cirrhosis, end-stage liver disease status post TIPS procedure, GERD, arthritis, depression who was admitted on 03/11/18 with sepsis, altered mental status, and cirrhosis. The patient is seen on morning rounds. He is again seen this afternoon when his is present. He is found resting comfortably on room air. He appears to be alert and oriented 4 though remains mildly confused and forgetful during lengthy conversations. Per the patient's , the patient is nearly back to his baseline. She reports that he has increased confusion in the morning that gradually resolves throughout the day. She does endorse decreased lactulose intake and occasional missing of doses due to forgetfulness and frequency of stools being inconvenient. She states that he does have a history of CHF and recently has complained of increased dyspnea. The patient is established with palliative care through [facility]. They do request that the patient have an echocardiogram so that appropriate medication adjustments may be made. They are advised on hospice appropriateness; they declined this at this time stating that they are very satisfied with palliative care and wish to continue with current location regimens. They have no other questions or concerns at this time. Reason For Visit: HEPATIC ENCEPHALOPATHY, SEPSIS Physical Exam Vital Signs: Temp Pulse Resp BP Pulse Ox 98.2 F 85 18 123/68 95 03/12/18 11:59 03/12/18 11:59 03/12/18 11:59 03/12/18 11:59 03/12/18 11:59 Intake & Output 03/11/18 03/12/18 03/13/18 06:59 06:59 06:59 Intake Total 80 Output Total 800 Balance -720 Weight 0.207 kg 93.8 kg General appearance: PRESENT: no acute distress, cooperative, obese, well- developed, well-nourished Head exam: PRESENT: atraumatic, normocephalic Eye exam: PRESENT: conjunctiva pink, EOMI, PERRLA. ABSENT: scleral icterus Ear exam: PRESENT: normal external ear exam Mouth exam: PRESENT: moist, tongue midline Neck exam: ABSENT: carotid bruit, JVD, lymphadenopathy, thyromegaly Respiratory exam: PRESENT: clear to auscultation graciela, symmetrical, unlabored. ABSENT: rales, rhonchi, wheezes Cardiovascular exam: PRESENT: RRR, +S1, +S2. ABSENT: diastolic murmur, rubs, systolic murmur Pulses: PRESENT: normal dorsalis pedis pul Vascular exam: PRESENT: normal capillary refill GI/Abdominal exam: PRESENT: distended, normal bowel sounds, soft. ABSENT: guarding, mass, organolmegaly, rebound, tenderness Rectal exam: PRESENT: deferred Extremities exam: PRESENT: full ROM. ABSENT: calf tenderness, clubbing, pedal edema Neurological exam: PRESENT: alert, awake, oriented to person, oriented to place , oriented to time, oriented to situation, CN II-XII grossly intact, other - Forgetful. ABSENT: motor sensory deficit Psychiatric exam: PRESENT: appropriate affect, normal mood. ABSENT: homicidal ideation, suicidal ideation Skin exam: PRESENT: dry, intact, warm. ABSENT: cyanosis, rash Results Laboratory Results: 03/12/18 06:55 03/12/18 06:55 03/12/18 03/12/18 03/12/18 06:55 06:55 06:55 WBC 8.5 RBC 3.71 L Hgb 12.7 L Hct 37.9 MCV 102 H MCH 34.2 H MCHC 33.5 RDW 15.1 H Plt Count 125 L Seg Neutrophils % 52.6 Lymphocytes % 24.9 Monocytes % 17.9 H Eosinophils % 3.8 Basophils % 0.8 Absolute Neutrophils 4.5 Absolute Lymphocytes 2.1 Absolute Monocytes 1.5 H Absolute Eosinophils 0.3 Absolute Basophils 0.1 Sodium 142.0 Potassium 3.4 L Chloride 111 H Carbon Dioxide 26 Anion Gap 5 BUN 11 Creatinine 0.85 Est GFR ( Amer) > 60 Est GFR (Non-Af Amer) > 60 Glucose 90 Calcium 8.6 Magnesium 1.7 Total Bilirubin 1.5 H AST 38 ALT 33 Alkaline Phosphatase 75 Ammonia 12.2 Total Protein 5.6 L Albumin 2.8 L 03/11/18 03/12/18 22:00 06:55 Troponin I 0.041 0.050 Impressions: Chest X-Ray 03/11/18 00:47 IMPRESSION: Small bibasilar atelectasis or scar. Assessment & Plan - Diagnosis (1) Sepsis Qualifiers: Sepsis type: sepsis due to unspecified organism Qualified Code(s): A41.9 - Sepsis, unspecified organism Is this a current diagnosis for this admission?: Yes Plan: The patient was admitted with sepsis due to unknown organism as evidenced by temperature of 101, hypotension, tachypnea, and altered mental status. Blood and urine cultures have no growth to date. Chest x-ray demonstrated bibasilar atelectasis but no acute cardiopulmonary findings. Patient was admitted to the medical floor and empirically placed on cefepime pending culture results. The patient has been afebrile for greater than 24 hours. White blood cells remain normal. His mental status has returned to baseline. There is no apparent source of infection. The patient is requesting to be discharged home as soon as possible. Therefore, will discontinue IV antibiotics and continue to monitor overnight. (2) Altered mental status Qualifiers: Altered mental status type: somnolence Qualified Code(s): R40.0 - Somnolence Is this a current diagnosis for this admission?: Yes Plan: Resolved; the patient has returned to his baseline mental status per the patient 's . This was likely secondary to seizures in the setting of end-stage liver disease and elevated ammonia. Continue to monitor and provide for patient safety. Fall precautions. (3) Cirrhosis of liver Qualifiers: Hepatic cirrhosis type: alcoholic cirrhosis Ascites presence: without ascites Qualified Code(s): K70.30 - Alcoholic cirrhosis of liver without ascites Is this a current diagnosis for this admission?: Yes Plan: The patient reports a history of end-stage liver disease now status post TIPS procedure. She will bilirubin was elevated to 2.2; has trended down to 1.5 today. Remaining LFTs are normal, however, this is likely due to his end-stage disease and not reflective of his actual hepatic function. He was placed on lactulose 4 times daily; ammonia has subsequently returned to normal. The patient is complaining of frequent loose stools; will decrease to 3 times daily. Continue rifaximin. The patient's home furosemide is resumed today. Will add spironolactone. (4) Congestive heart failure Qualifiers: Heart failure type: systolic Is this a current diagnosis for this admission?: Yes Plan: The patient has a history of CHF; no previous echocardiogram is on file. ProBNP was elevated to greater than 2000 and the patient is complaining of intermittent orthopnea. Echocardiogram has been completed; results are not yet available. Cardiology has been consulted for medication recommendations; the patient is not interested in aggressive interventions. Appreciate Dr. Doran's assistance. Continue statin therapy Continue home dose furosemide 40 mg daily. Have added spironolactone 25 mg p.o. daily. (5) Hepatic encephalopathy Is this a current diagnosis for this admission?: Yes Plan: Resolved; patient is now back to baseline. - Time Time Spent with patient: 25-34 minutes Medications reviewed and adjusted accordingly: Yes Anticipated discharge: Home Within: within 24 hours
--- NOTE | 2018-03-12 18:48 | XCELERA REPORT ---
[address] [address] Transthoracic Echocardiogram Report Name: LAUREN JAIMES Age: 68 yrs Gender: Male : 1950 Patient Status: Inpatient Patient Location: [address] [place] [address] Study Date: 03/12/2018 11:22 AM Height: 66 in Weight: 207 lb BSA: 2.0 m2 Procedure: A complete two-dimensional transthoracic echocardiogram was performed (2D, M-mode, spectral and color flow Doppler). The study was technically difficult with many images being suboptimal in quality. Reason For Study: Elevated pro-BNP Ordering Physician: YUKI KIMC Performed By: Yessi Foster Interpretation Summary The Ejection Fraction estimate is 20-25% Left ventricular systolic function is severely reduced. The left ventricle is moderately to severly dilated. There is global thinning of the left ventricular tyson. Doppler measurements suggest pseudonormalized left ventricular relaxation, which is associated with grade II/IV or mild to moderate diastolic dysfunction There is severe global hypokinesis of the left ventricle. There is mid to distal anterior wall akinesis There is apical wall akinesis The right ventricular systolic function is normal. The right ventricle is grossly normal size. The left atrium is mildly dilated. The right atrium is normal in size There is a mild amount of mitral regurgitation There is no mitral valve stenosis. No aortic regurgitation is present. There is no aortic valve stenosis There is a trace or physiologic amount of tricuspid regurgitation Tricuspid regurgitation jet envelope not well defined to measure RV systolic pressure accurately. The aortic root is not well visualized but is probably normal size. The inferior vena cava was not well visualized There is no pericardial effusion. MMode/2D Measurements & Calculations RVDd: 2.5 cm LVIDd: 7.1 cm FS: 14.6 % Ao root diam: IVSd: 1.0 cm LVIDs: 6.1 cm EDV(Teich): 3.6 cm LVPWd: 1.1 cm 263.3 ml Ao root area: ESV(Teich): 184.0 ml 10.1 cm2 EF(Teich): 30.1 %LA dimension: 3.9 cm LVLd ap4: 12.0 cm SV(MOD-sp4): EDV(MOD-sp4): 109.0 ml 395.0 ml LVLs ap4: 10.8 cm ESV(MOD-sp4): 286.0 ml EF(MOD-sp4): 27.6 % Doppler Measurements & Calculations MV E max maureen: MV P1/2t max maureen: Ao V2 max: LV V1 max P.3 cm/sec 94.8 cm/sec 165.1 cm/sec 6.9 mmHg MV A max maureen: MV P1/2t: 52.1 msec Ao max PG: LV V1 max: 130.3 cm/sec MVA(P1/2t): 4.2 cm2 10.9 mmHg 131.3 cm/sec MV E/A: 0.72 MV dec slope: 532.7 cm/sec2 MV dec time: 0.18 sec PA V2 max: TR max maureen: 112.5 cm/sec 262.0 cm/sec PA max P.1 mmHgTR max P.5 mmHg Left Ventricle The left ventricle is moderately to severly dilated. There is global thinning of the left ventricular tyson. Left ventricular systolic function is severely reduced. The Ejection Fraction estimate is 20-25%. Doppler measurements suggest pseudonormalized left ventricular relaxation, which is associated with grade II/IV or mild to moderate diastolic dysfunction. There is severe global hypokinesis of the left ventricle. There is mid to distal anterior wall akinesis. There is apical wall akinesis. Right Ventricle The right ventricle is grossly normal size. There is normal right ventricular wall thickness. The right ventricular systolic function is normal. Atria The right atrium is normal in size. The left atrium is mildly dilated. Interarterial septum not well visualized and not well dopplered. Cannot comment on ASD/PFO presence. Mitral Valve The mitral valve is grossly normal. There is no mitral valve stenosis. There is a mild amount of mitral regurgitation. Aortic Valve The aortic valve is not well visualized secondary to technical limitations. There is no aortic valve stenosis. No aortic regurgitation is present. Tricuspid Valve The tricuspid valve is not well visualized secondary to technical limitations. There is no tricuspid stenosis. There is a trace or physiologic amount of tricuspid regurgitation. Tricuspid regurgitation jet envelope not well defined to measure RV systolic pressure accurately. Pulmonic Valve The pulmonic valve is not well visualized. Great Vessels The aortic root is not well visualized but is probably normal size. The inferior vena cava was not well visualized. Effusions There is no pericardial effusion. : KENNY KIM > Jaxon Doran
[2018-03-12] MEDS ORDERED: SIMVASTATIN 40 MG TABLET PO SCH (22:00)
[2018-03-13] MEDS: HEPARIN SOD (PORCINE) 5,000 UNIT/ML 1 ML SYRINGE SUBCUT SCH (06:31)
[2018-03-13 06:39] LABS: HEMATOCRIT 35.8 % (37.9-51.0); HEMOGLOBIN 12.2 g/dL (13.5-17.0); MEAN CORPUSCULAR HGB CONC 34.1 g/dL (32.0-36.0); MEAN CORPUSCULAR VOLUME 103 fl (80-97); PLATELET COUNT 115 10^3/uL (150-450); RED BLOOD COUNT 3.49 10^6/uL (4.35-5.55); WHITE BLOOD COUNT 6.3 10^3/uL (4.0-10.5)
[2018-03-13] MEDS: LACTULOSE SYRUP 20 GM/30 ML UDCUP PO SCH (06:51)
[2018-03-13] MEDS: LANSOPRAZOLE 30 MG TAB.RAP.DR PO SCH (06:51)
[2018-03-13 07:11] LABS: ANION GAP 8 (5-19); BLOOD UREA NITROGEN 9 mg/dL (7-20); CALCIUM 8.6 mg/dL (8.4-10.2); CARBON DIOXIDE 23 mmol/L (22-30); CHLORIDE 112 mmol/L (98-107); GLUCOSE 82 mg/dL (75-110); POTASSIUM 3.7 mmol/L (3.6-5.0); SODIUM 142.5 mmol/L (137-145)
[2018-03-13 09:06] VITALS: BP 123/68
[2018-03-13] MEDS ORDERED: ONDANSETRON HCL INJ/PF 4 MG/2 ML SDV IV PRN (09:30)
[2018-03-13] MEDS ORDERED: FUROSEMIDE 40 MG TABLET PO SCH (10:00)
--- NOTE | 2018-03-13 11:14 | PDOC CONSULTATION ---
Consultation Consult Date: 03/12/18 Attending physician:: IFEANYI MOY Consult reason:: CHF History of Present Illness Admission Date/PCP: 03/11/18 02:38 Patient complains of: Shortness of breath and pedal edema History of Present Illness: LAUREN JAIMES is a 68 year old male, patient gives history of congestive heart failure, LV systolic dysfunction. Patient claims that he was advised to have a defibrillator implanted last year but he declined at that time. Patient continues to decline placement of a defibrillator. Patient has significant other comorbid diagnosis. Patient denied any chest pain. He claims that he is feeling better. He gives history of stent placement for cirrhosis of liver. Patient claims she used to drink heavily but now has quit. Patient reiterates his decision to be a DNR. Past Medical History Cardiac Medical History: Reports: Congestive Heart Failure, Hyperlipidema, Hypertension, Peripheral Vascular Disease Denies: DVT, Myocardial Infarction, Pulmonary Embolism Pulmonary Medical History: Denies: Asthma, Chronic Obstructive Pulmonary Disease (COPD) Neurological Medical History: Denies: Seizures Endocrine Medical History: Denies: Diabetes Mellitus Type 1, Diabetes Mellitus Type 2, Hyperthyroidism, Hypothyroidism GI Medical History: Reports: Cirrhosis, Gastroesophageal Reflux Disease Denies: Hepatitis Musculoskeltal Medical History: Reports: Arthritis Psychiatric Medical History: Reports: Depression, Post Traumatic Stress Disorder Past Surgical History Past Surgical History: Reports: Orthopedic Surgery - left knee, Vascular Surgery , Other - TIPS (Transjugular intrahepatic portosystemic shunt) and Devries Caval shunt Social History Information Source: Patient Lives with: Spouse/Significant other Smoking Status: Current Every Day Smoker Cigarettes Packs Per Day: 0.5 Last Time Smoked: 03/10/18 Frequency of Alcohol Use: None Hx Recreational Drug Use: No Drugs: None Hx Prescription Drug Abuse: No - Advance Directive Resuscitation Status: Full Code Surrogate healthcare decision maker:: Patient's is the surrogate decision-maker Family History Family History: CAD, Reviewed & Not Pertinent Parental Family History Reviewed: Yes Children Family History Reviewed: Yes Sibling(s) Family History Reviewed.: Yes Medication/Allergy Home Medications: Aspirin [Ecotrin 81 mg EC Tablet] 81 mg PO DAILY 03/11/18 Eplerenone [Inspra] 100 mg PO Q12 03/11/18 Ferrous Sulfate [Feosol 325 mg Tablet] 325 mg PO DAILY 03/11/18 Furosemide [Lasix 40 mg Tablet] 40 mg PO DAILY 03/11/18 Magnesium Oxide [Mag-Ox 400 mg Tablet] 400 mg PO BID 03/11/18 Multivitamin with Minerals [One Daily Plus Minerals] 1 tab PO DAILY 03/11/18 Omeprazole 40 mg PO BIDACBS 03/11/18 Ranitidine HCl [Zantac 150 mg Tablet] 150 mg PO BID 03/11/18 Simvastatin [Zocor 40 mg Tablet] 20 mg PO QHS 03/11/18 Sucralfate [Carafate 1 gm Tablet] 1 gm PO BID 03/11/18 Carvedilol [Coreg] 1 tab PO Q12 #60 tab 03/13/18 Lactulose [Cephulac Syrup 20 gm/30 ml Udcup] 20 gm PO Q8 #90 udc 03/13/18 Rifaximin [Xifaxan 550 mg Tablet] 550 mg PO BID #60 tablet 03/13/18 Allergies/Adverse Reactions: bee venom protein (honey bee) Allergy (Unknown, Verified 03/11/18 08:11) morphine Allergy (Verified 03/11/18 18:38) bee stings Allergy (Uncoded 03/11/18 08:11) Review of Systems Review of Systems: Please see history of present illness and past medical history as wall. Constitutional: No fever or chills reported. Head : No recent chronic headaches, recent head injury. Eyes: No recent eye pain, diplopia, redness, discharge, acute visual changes. Ears: No recent chronic ear pain, acute hearing loss, ear discharge. Oral cavity: No recent ulcerations, bleeding, oral cavity discomfort. Neck: No recent acute neck pain reported. Hematologic: No recent easy bruising or bleeding or hematologic malignancy reported. Lymphatic: No recent lymphatic malignancy, chronic lymphadenopathy reported yet Cardiovascular system review: See history of present illness. Patient gives history of weak heart muscles. He declined a defibrillator placement in the past. Respiratory system review: No recent chronic cough, hemoptysis, blood clots in the lungs reported.Shortness of breath on exertion Gastrointestinal system review: Negative for any recent acute or chronic abdominal pain, hematemesis, melena, recent change in bowel habits. Genitourinary system review: No recent acute or chronic hematuria, flank pain, UTI etc. reported. Skin system review: Negative for any recent abnormal bruising, no rash, no pruritus reported. Neurologic: No prior history of strokes, mini strokes, seizure disorder. Patient describes transient loss of consciousness which he claims is related to his liver failure. Psychologic: No history of major psychosis or major depression reported. Musculoskeletal: Minor aches and pains reported. No acute joint swelling reported. Endocrine: No recent polyuria, polydipsia, recent heat or cold intolerance. Physical Exam Vital Signs: Temp Pulse Resp BP Pulse Ox 98.2 F 86 16 123/68 95 03/12/18 11:59 03/12/18 16:50 03/12/18 16:50 03/12/18 11:59 03/12/18 16:50 Intake & Output 03/11/18 03/12/18 03/13/18 06:59 06:59 06:59 Intake Total 80 1540 Output Total 800 1550 Balance -720 -10 Weight 0.207 kg 93.8 kg Exam: GENERAL: well-nourished and in no acute distress. Alert and oriented x3 HEAD: Atraumatic, normocephalic. EYES: Pupils equal round and reactive to light, extraocular movements intact, sclera anicteric, conjunctiva are normal. ENT: TMs normal, nares patent, oropharynx clear without exudates. Moist mucous membranes. No oral ulcerations or bleeding gums noted NECK: supple without lymphadenopathy. Trachea is central. No cervical or axillary lymphadenopathy noted. Carotids are 2+, JVD WNL LUNGS: Respiration seems nonlabored, no significant accessory muscle action noted. Bibasilar fine crackles are noted. No wheezes rales or rhonchi noted. No significant dullness noted on percussion. CHEST: Palpation of the chest wall shows no significant chest wall tenderness. No other significant abnormalities noted. HEART: [place] [employer], No PSH, 1/6 JEANETH aortic area, 1/6 rees systolic murmur mitral area, no rubs, no gallops. ABDOMEN: Soft, no significant tenderness appreciated, normoactive bowel sounds. No guarding, no rebound. No rigidity noted . No masses appreciated. EXTREMITIES: Pedal pulses are 1-2+, no calf tenderness noted. No clubbing or cyanosis. 1-2+ pedal edema noted NEUROLOGICAL: Focused neurological exam showed no significant neurologic deficit. Normal speech, no focal weakness appreciated. PSYCH: Normal mood, normal affect. Judgment and insight within normal limits. SKIN: No significant ecchymosis, skin is noted to be warm. MUSCULOSKELETAL EXAM: No significant acute joint swelling noted. Results Laboratory Results: 03/12/18 06:55 03/12/18 06:55 03/12/18 03/12/18 03/12/18 06:55 06:55 06:55 WBC 8.5 RBC 3.71 L Hgb 12.7 L Hct 37.9 MCV 102 H MCH 34.2 H MCHC 33.5 RDW 15.1 H Plt Count 125 L Seg Neutrophils % 52.6 Lymphocytes % 24.9 Monocytes % 17.9 H Eosinophils % 3.8 Basophils % 0.8 Absolute Neutrophils 4.5 Absolute Lymphocytes 2.1 Absolute Monocytes 1.5 H Absolute Eosinophils 0.3 Absolute Basophils 0.1 Sodium 142.0 Potassium 3.4 L Chloride 111 H Carbon Dioxide 26 Anion Gap 5 BUN 11 Creatinine 0.85 Est GFR ( Amer) > 60 Est GFR (Non-Af Amer) > 60 Glucose 90 Calcium 8.6 Magnesium 1.7 Total Bilirubin 1.5 H AST 38 ALT 33 Alkaline Phosphatase 75 Ammonia 12.2 Total Protein 5.6 L Albumin 2.8 L 03/11/18 03/12/18 22:00 06:55 Troponin I 0.041 0.050 EKG Comments: Twelve-lead EKG shows sinus rhythm with minor nonspecific T-wave changes. Impressions: Chest X-Ray 03/11/18 00:47 IMPRESSION: Small bibasilar atelectasis or scar. Assessment & Plan - Diagnosis (1) Acute on chronic combined systolic and diastolic CHF (congestive heart failure) Is this a current diagnosis for this admission?: Yes (2) Cardiomyopathy Qualifiers: Cardiomyopathy type: other Qualified Code(s): I42.8 - Other cardiomyopathies Is this a current diagnosis for this admission?: Yes (3) Cirrhosis of liver Qualifiers: Hepatic cirrhosis type: alcoholic cirrhosis Ascites presence: unspecified Qualified Code(s): K70.30 - Alcoholic cirrhosis of liver without ascites Is this a current diagnosis for this admission?: Yes (4) Palliative care status Is this a current diagnosis for this admission?: Yes - Notes Notes: I was asked to evaluate this patient because of markedly elevated BNP level. Acute on chronic combined systolic and diastolic heart failure: Patient currently is stable. Still has mild fluid overload. But significantly improved since admission. Cardiomyopathy: 2D echo results were reviewed. It showed severely depressed LVEF. There is suspicion of prior anterior myocardial infarction. Patient claims that he has known about this for at least a year when he was offered defibrillator placement but he declined. He continues to decline this at this point. Please note patient currently DNR and is on palliative measures. Cirrhosis of liver: Patient claims he has end-stage cirrhosis. Will leave management to appropriate specialist. DNR and palliative care status: Continue with it. Overall prognosis with stage IV CHF with which patient was admitted is not good. Patient's medical regimen was reviewed. Will gradually optimize this. Overall prognosis is on the poor side. - Time Time Spent: 30 to 50 Minutes - CODE STATUS : was discussed, patient remains DO NOT RESUSCITATE. Surrogate decision-maker unchanged. Multiple medical problems were addressed. More than 50% of the time spent coordinating care, discussing management plans with involved caregivers. Management plans discussed with involved personnels. Medical decision making was of moderate to high complexity, patient's has multiple comorbidities. Medications reviewed and adjusted accordingly: Yes
--- NOTE | 2018-03-13 11:21 | PDOC PROGRESS REPORT ---
Subjective Progress Note for:: 03/13/18 Subjective:: Patient seems to be doing better. Pt is denying any chest arm or neck discomfort. Patient denying any PND, orthopnea. Patient denied any sustained palpitations, dizziness, syncope, near syncope. Patient denying any fever chills. Patient denying any other significant discomfort. Patient is maintaining sinus rhythm. Telemetry strips reviewed a short run of wide-complex tachycardia felt to be ventricular tachycardia but cannot rule out aberrant conduction as the rate was irregular. Patient was noted to be asymptomatic. Review of systems: Rest review of systems negative. Medications: Medications have been reviewed. Reason For Visit: HEPATIC ENCEPHALOPATHY, SEPSIS Physical Exam Vital Signs: Temp Pulse Resp BP Pulse Ox 98.2 F 82 16 123/68 95 03/13/18 09:02 03/13/18 09:02 03/13/18 09:02 03/13/18 09:02 03/13/18 09:02 Intake & Output 03/12/18 03/13/18 03/14/18 06:59 06:59 06:59 Intake Total 80 1895 Output Total 800 2150 Balance -720 -255 Weight 93.8 kg 93.8 kg Results Laboratory Results: 03/13/18 05:43 03/13/18 05:43 03/13/18 03/13/18 05:43 05:43 WBC 6.3 RBC 3.49 L Hgb 12.2 L Hct 35.8 L MCV 103 H MCH 35.0 H MCHC 34.1 RDW 15.0 H Plt Count 115 L Sodium 142.5 Potassium 3.7 Chloride 112 H Carbon Dioxide 23 Anion Gap 8 BUN 9 Creatinine 0.73 Est GFR ( Amer) > 60 Est GFR (Non-Af Amer) > 60 Glucose 82 Calcium 8.6 03/11/18 03/12/18 22:00 06:55 Troponin I 0.041 0.050 Impressions: Chest X-Ray 03/11/18 00:47 IMPRESSION: Small bibasilar atelectasis or scar. Assessment & Plan - Diagnosis (1) Acute on chronic combined systolic and diastolic CHF (congestive heart failure) Is this a current diagnosis for this admission?: Yes (2) Cardiomyopathy Qualifiers: Cardiomyopathy type: other Qualified Code(s): I42.8 - Other cardiomyopathies Is this a current diagnosis for this admission?: Yes (3) Cirrhosis of liver Qualifiers: Hepatic cirrhosis type: alcoholic cirrhosis Ascites presence: unspecified Qualified Code(s): K70.30 - Alcoholic cirrhosis of liver without ascites Is this a current diagnosis for this admission?: Yes (4) Palliative care status Is this a current diagnosis for this admission?: Yes (5) Wide-complex tachycardia Is this a current diagnosis for this admission?: Yes - Notes Notes: Acute on chronic combined systolic and diastolic heart failure: Patient currently is stable. Patient is in hurry to go home. Medical management is not optimal at this point but will be gradually improved. Patient was placed on carvedilol 3.125 mg p.o. every 12. Will gradually institute entresto therapy as an outpatient. Cardiomyopathy: 2D echo results were reviewed. It showed severely depressed LVEF. Patient claims that he has known about this for at least a year when he was offered defibrillator placement but he declined. He continues to decline this at this point. Please note patient currently DNR and is on palliative measures. Wide-complex tachycardia: Most likely V. tach but cannot be 100%. Patient has significant contraindication to amiodarone therapy. Therefore was placed on carvedilol 3.125 mg p.o. every 12. Will add Ranexa. Overall prognosis is guarded. Patient does know that he is at risk of increased sudden cardiac . Cirrhosis of liver: Patient claims he has end-stage cirrhosis. Will leave management to appropriate specialist. DNR and palliative care status: Continue with it. Overall prognosis with stage IV CHF with which patient was admitted is not good. Patient's medical regimen was reviewed. Will gradually optimize this. Overall prognosis is on the poor side. Patient being discharged today in fact he is very keen on being discharged. Patient can follow-up with me if he wishes. - Time Time with patient: Greater than 35 minutes - CODE STATUS : was discussed, patient remains DO NOT RESUSCITATE. Surrogate decision-maker unchanged. Multiple medical problems were addressed. More than 50% of the time spent coordinating care, discussing management plans with involved caregivers. Management plans discussed with involved personnels. Medical decision making was of moderate to high complexity, patient's has multiple comorbidities. Medications reviewed and adjusted accordingly: Yes
--- NOTE | 2018-03-13 15:04 | Physician Advisory Note ---
Physician Advisor ProgressNote .: [facility] for this patient. Physician Advisor Statement: Please consider documenting, if you agree: 1. "Suspected Bacterial infection of unclear etiology" - & was this ruled out, or just had source not found? 2. "Chronic systolic CHF" 3. Was sepsis ruled out after being considered initially? Thanks! CK
--- NOTE | 2018-03-13 17:00 | PDOC DISCHARGE SUMMARY ---
General - Admit/Disc Date/PCP Admission Date/Primary Care Provider: 03/11/18 02:38 Discharge Date: 03/13/18 - Discharge Diagnosis (1) Sepsis Is this a current diagnosis for this admission?: Yes Summary: The patient was admitted with diagnosis of sepsis evidenced fever, altered mental status, and tachypnea due to a known organism. He was empirically placed on cefepime. This was eventually ruled out as a source of infection was not identified, WBCs remain normal, and temperature resolved within 1 hour of admission and did not recur. Urine and blood cultures remain negative; cefepime was discontinued after 2 doses. The patient remained afebrile and WBCs did not increase. (2) Altered mental status Is this a current diagnosis for this admission?: Yes Summary: Secondary to hyperammonemia. Although the patient declines medication indiscretion; his palliative care provider reported that he frequently increases her discontinues his dosing resulting in hepatic encephalopathy. The patient was placed on lactulose 4 times daily and rifaximin in 550 mg twice daily. His ammonia and LFTs were monitored; blood was trended down with ammonia returning to normal at time of discharge. This coincided with improvement in his mental status. At time of discharge, the patient has returned to his baseline mental status per his . He is discharged with prescriptions for lactulose 20 gm three times daily and rifaximin 550 mg twice daily. (3) Cirrhosis of liver Is this a current diagnosis for this admission?: Yes Summary: Chronic cirrhosis of the liver status post TIPS procedure. (4) Congestive heart failure Is this a current diagnosis for this admission?: Yes Summary: The patient reported orthopnea. Serial troponins were noted to be indeterminate at 0.05. ProBNP was found to be elevated at 2000. Echocardiogram was obtained demonstrating an LVEF of 20-25%. The patient was also noted to have frequent PVCs with a ventricular tachycardia run of 32 beats that spontaneously resolved. Cardiology was therefore consulted. Medication recommendations included carvedilol 3.125 mg p.o. twice daily and Ranexa [address] Doran did discuss with the patient is an AICD the patient continues to decline at this time. The patient's palate of care provider, KENNY Oseguera was updated on the patient's results and decisions., (5) Hepatic encephalopathy Is this a current diagnosis for this admission?: Yes Summary: Resolved; hospital course as outlined above. - Additional Information Resuscitation Status: Full Code Discharge Diet: Cardiac, Other (Comments) - Please be mindful of sodium intake Discharge Activity: Activity As Tolerated, Balance Activity w/Rest Prescriptions: Carvedilol [Coreg] 1 tab PO Q12 #60 tab Lactulose [Cephulac Syrup 20 gm/30 ml Udcup] 20 gm PO Q8 #90 udc Rifaximin [Xifaxan 550 mg Tablet] 550 mg PO BID #60 tablet Home Medications: Aspirin [Ecotrin 81 mg EC Tablet] 81 mg PO DAILY 03/11/18 Eplerenone [Inspra] 100 mg PO Q12 03/11/18 Ferrous Sulfate [Feosol 325 mg Tablet] 325 mg PO DAILY 03/11/18 Furosemide [Lasix 40 mg Tablet] 40 mg PO DAILY 03/11/18 Magnesium Oxide [Mag-Ox 400 mg Tablet] 400 mg PO BID 03/11/18 Multivitamin with Minerals [One Daily Plus Minerals] 1 tab PO DAILY 03/11/18 Omeprazole 40 mg PO BIDACBS 03/11/18 Ranitidine HCl [Zantac 150 mg Tablet] 150 mg PO BID 03/11/18 Simvastatin [Zocor 40 mg Tablet] 20 mg PO QHS 03/11/18 Sucralfate [Carafate 1 gm Tablet] 1 gm PO BID 03/11/18 Carvedilol [Coreg] 1 tab PO Q12 #60 tab 03/13/18 Lactulose [Cephulac Syrup 20 gm/30 ml Udcup] 20 gm PO Q8 #90 udc 03/13/18 Rifaximin [Xifaxan 550 mg Tablet] 550 mg PO BID #60 tablet 03/13/18 History of Present Illness History of Present Illness: Per H&P by Dr. Gilmore: LAUREN JAIMES is a 68 year old male patient brought his chief complaint of confusion and fever. Since patient is cognitively impaired he denies social history. He is obtained from the ER attending note and his . Per ER attending, patient presented febrile tachycardic mildly hypoxic meet sepsis criteria at the time of arrival. Patient is profoundly confused. Patient has a documented fever by EMS and and after he arrived at ER around 100.6. His ammonia level is moderately elevated and his BNP is 2400. His reports patient has had recurrent falls. There is no report of cough, chest pain or diaphoresis. No report of nausea, vomiting , abdominal pain or any urinary complaints. Of note patient is a known case of cirrhosis of the liver he is status post TIPS. Reportedly patient is complaining with his daily medications. Further detailed history and review of systems unobtainable Physical Exam Vital Signs: Temp Pulse Resp BP Pulse Ox 98.2 F 82 16 123/68 95 03/13/18 09:02 03/13/18 09:02 03/13/18 09:02 03/13/18 09:02 03/13/18 09:02 Intake & Output 03/12/18 03/13/18 03/14/18 06:59 06:59 06:59 Intake Total 80 1895 Output Total 800 2150 Balance -720 -255 Weight 93.8 kg 93.8 kg General appearance: PRESENT: no acute distress, cooperative, well-developed, well-nourished, other - Overweight Head exam: PRESENT: atraumatic, normocephalic Eye exam: PRESENT: conjunctiva pink, EOMI, PERRLA. ABSENT: scleral icterus Ear exam: PRESENT: normal external ear exam Mouth exam: PRESENT: moist, tongue midline Neck exam: ABSENT: carotid bruit, JVD, lymphadenopathy, thyromegaly Respiratory exam: PRESENT: clear to auscultation graciela, symmetrical, unlabored. ABSENT: rales, rhonchi, wheezes Cardiovascular exam: PRESENT: RRR. ABSENT: diastolic murmur, rubs, systolic murmur Pulses: PRESENT: normal dorsalis pedis pul Vascular exam: PRESENT: normal capillary refill GI/Abdominal exam: PRESENT: normal bowel sounds, soft. ABSENT: distended, guarding, mass, organolmegaly, rebound, tenderness Rectal exam: PRESENT: deferred Extremities exam: PRESENT: full ROM. ABSENT: calf tenderness, clubbing, pedal edema Neurological exam: PRESENT: alert, awake, oriented to person, oriented to place , oriented to time, oriented to situation, CN II-XII grossly intact. ABSENT: motor sensory deficit Psychiatric exam: PRESENT: appropriate affect, normal mood. ABSENT: homicidal ideation, suicidal ideation Skin exam: PRESENT: dry, intact, warm. ABSENT: cyanosis, rash Results Laboratory Results: 03/13/18 05:43 03/13/18 05:43 03/13/18 03/13/18 05:43 05:43 WBC 6.3 RBC 3.49 L Hgb 12.2 L Hct 35.8 L MCV 103 H MCH 35.0 H MCHC 34.1 RDW 15.0 H Plt Count 115 L Sodium 142.5 Potassium 3.7 Chloride 112 H Carbon Dioxide 23 Anion Gap 8 BUN 9 Creatinine 0.73 Est GFR ( Amer) > 60 Est GFR (Non-Af Amer) > 60 Glucose 82 Calcium 8.6 03/11/18 03/12/18 22:00 06:55 Troponin I 0.041 0.050 Impressions: Chest X-Ray 03/11/18 00:47 IMPRESSION: Small bibasilar atelectasis or scar. Qualifiers - * PATEINT BEING DISCHARGED WITH ANY OF THE FOLLOWING DIAGNOSIS?: Heart Failure HF Pt being discharged on ACEI for LVEF less than 40%?: No Reason(s) for not prescribing ACEI:: Drug declined by patient HF Pt being discharged on ARBS for LVEF less than 40%?: No Reason(s) for not prescribing ARBS:: Drug declined by patient HF Pt with Afib discharged with Warfarin?: No Reason(s) for not prescribing Warfarin:: Not indicated - Does not have afib HF Pt discharged on evidence-based Beta Roberth:: Yes Plan Discharge Plan: Discharge to home with self-care. The patient is instructed to follow-up with his primary care provider within 1 week, may follow-up with Dr. Doran's office within 2-4 weeks. He is encouraged to reduce his sodium intake and follow a cardiac diet. He is advised on daily weights and administration of furosemide for weight increase. Palliative Care will continue to follow him as an outpatient.
[2018-03-14] MEDS ORDERED: LANSOPRAZOLE 30 MG TAB.RAP.DR PO SCH (06:00)
== END 2018-03-13 09:47 | disposition home or self-care (01) | DRG 432 ==
LOC: ER 00:41 → EH 02:38 → 5 14:58
PROVIDERS: ADMIT Internal Medicine; ATTEND Internal Medicine
DX: K70.40 Alcoholic hepatic failure without coma (principal); I50.43 Acute on chronic combined systolic (congestive) and diastolic (congestive) heart failure; E72.4 Disorders of ornithine metabolism; I42.9 Cardiomyopathy, unspecified; K70.30 Alcoholic cirrhosis of liver without ascites; I11.0 Hypertensive heart disease with heart failure; E78.5 Hyperlipidemia, unspecified; I73.9 Peripheral vascular disease, unspecified; M19.90 Unspecified osteoarthritis, unspecified site; F43.10 Post-traumatic stress disorder, unspecified; F17.200 Nicotine dependence, unspecified, uncomplicated; K21.9 Gastro-esophageal reflux disease without esophagitis; F32.9 Major depressive disorder, single episode, unspecified; Z51.5 Encounter for palliative care; J44.9 Chronic obstructive pulmonary disease, unspecified; Z96.89 Presence of other specified functional implants; Z66 Do not resuscitate; Z91.81 History of falling; Z82.49 Family history of ischemic heart disease and other diseases of the circulatory system; Z79.82 Long term (current) use of aspirin; Z79.899 Other long term (current) drug therapy; Z91.030 Bee allergy status
CPT/HCPCS: 36415; 71045; 80048; 80053; 81001; 82140; 82803; 82962; 83605; 83735; 83880; 84484; 85025; 85027; 85610; 85730; 87040; 87077; 87086; 93005; 93010; 93306; 96365; 96375; 99291; A9270-GY; J0692; J1644; J1940; J3370; J7030

== ENCOUNTER 2018-04-06 12:50 | Inpatient (IN) | payer OTHER, MEDICARE ==
[2018-04-06] MEDS ORDERED: IBUPROFEN 800 MG TABLET PO ONE (13:25)
[2018-04-06 13:30] LABS: ARTERIAL BLOOD BASE EXCESS -1.2 mmol/L; ARTERIAL BLOOD H2CO3 0.76 mmol/L (1.05-1.35); ARTERIAL BLOOD HCO3 19.9 mmol/L (20-26); ARTERIAL BLOOD O2 SATURATION 97.3 % (94-98); ARTERIAL BLOOD PCO2 25.1 mmHg (35-45); ARTERIAL BLOOD PH 7.52 (7.35-7.45); ARTERIAL BLOOD PO2 83.9 mmHg (80-100); ARTERIAL BLOOD TOTAL CO2 20.7 mmol/L (23-27)
--- NOTE | 2018-04-06 13:31 | ER Document Report ---
ED General - General Chief Complaint: Fever Stated Complaint: RESPIRATORY DISTRESS Time Seen by Provider: 04/06/18 13:00 Notes: Patient is a 58-year-old male who presents emergency department via EMS with his at the bedside with a significant past medical history significant for alcoholic liver cirrhosis that is DNR/DNI. History is per EMS and at the bedside. She states that he for the past 3 days he has been short of breath and more lethargic over the coming days. She states that today he was having difficulty breathing she called EMS and their vital signs revealed that he had a axillary temp of 101. She states that he has been very confused. Patient responding to name and verbal stimuli but not able to cooperate during history. Patient does have a history of hepatic encephalopathy, previous TIPS, CHF, COPD. TRAVEL OUTSIDE OF THE [place] IN LAST 30 DAYS: No - Related Data Allergies/Adverse Reactions: bee venom protein (honey bee) Allergy (Unknown, Verified 03/11/18 08:11) morphine Allergy (Verified 03/11/18 18:38) bee stings Allergy (Uncoded 03/11/18 08:11) Past Medical History - Social History Smoking Status: Former Smoker Family History: CAD, Reviewed & Not Pertinent - Past Medical History Cardiac Medical History: Reports: Hx Congestive Heart Failure, Hx Hypercholesterolemia, Hx Hypertension, Hx Peripheral Vascular Disease Denies: Hx DVT, Hx Heart Attack, Hx Pulmonary Embolism Pulmonary Medical History: Denies: Hx Asthma, Hx COPD Neurological Medical History: Denies: Hx Seizures Endocrine Medical History: Denies: Hx Diabetes Mellitus Type 1, Hx Diabetes Mellitus Type 2, Hx Hyperthyroidism, Hx Hypothyroidism Renal/ Medical History: Denies: Hx Peritoneal Dialysis GI Medical History: Reports: Hx Cirrhosis, Hx Gastroesophageal Reflux Disease. Denies: Hx Hepatitis Musculoskeltal Medical History: Reports Hx Arthritis Psychiatric Medical History: Reports: Hx Depression, Hx Post Traumatic Stress Disorder Infectious Medical History: Denies: Hx Hepatitis Past Surgical History: Reports: Hx Bowel Surgery - Hernia repair, Hx Inguinal Hernia, Hx Orthopedic Surgery - left knee, Hx Vascular Surgery, Other - TIPS ( Transjugular intrahepatic portosystemic shunt) and Devries Caval shunt - Immunizations Hx Diphtheria, Pertussis, Tetanus Vaccination: Yes Review of Systems - Review of Systems -: Yes ROS unobtainable due to patient's medical condition Physical Exam - Vital signs Vitals: Temp Pulse Resp BP Pulse Ox 103.1 F H 79 24 H 145/67 H 100 04/06/18 12:59 04/06/18 12:59 04/06/18 12:59 04/06/18 12:59 04/06/18 12:59 - Notes Notes: PHYSICAL EXAM GENERAL: Lethargic but able to give one word answers correctly to name,and location HEAD: Normocephalic, atraumatic. EYES: Pupils equal, round, and reactive to light. Extraocular movements intact. ENT: Oral mucosa moist, tongue midline. NECK: Full range of motion. Supple. Trachea midline. LUNGS: Bilateral lower lobe rhonchi, rales, or rhonchi. No respiratory distress. HEART: Regular rate and rhythm. No murmurs, gallops, or rubs. ABDOMEN: Soft, nondistended, nontender. No guarding, rebound, or rigidity.. Bowel sounds present in all 4 quadrants. EXTREMITIES: Moves all 4 extremities spontaneously. No edema, radial and dorsalis pedis pulses 2/4 bilaterally. No cyanosis. NEUROLOGICAL: Normal speech. PSYCH: Normal affect, normal mood. SKIN: Warm, dry, normal turgor. No rashes or lesions noted. Course - Re-evaluation Re-evalutation: 04/06/18 13:20 Patient is a 60-year-old male who presents emergency department is currently hemodynamically stable. Patient satting 97% on 3 L. Temp Jay reveals temp of 103.3. initially declining Tylenol but discussed with her that he would not be able to tolerate p.o. at this time so she was agreeable to rectal Tylenol. Patient does meet sepsis criteria with concerns for pneumonia. Physical exam benign for any concerns for peritonitis. CBC does reveal evidence of leukocytosis 15,000 without underlying anemia. Chemistry with elevation in ammonia 79. Patient does have a history of CHF but BNP stable 1330. Chest x-ray does show evidence of bilateral lower lobe atelectasis which is concerning for pneumonia given current presentation. Patient will be treated with IV antibiotics. Patient improved after IV fluids, IV antibiotics as well as rectal Tylenol. Patient now more alert and answering questions appropriately. Patient admitted to hospitalist service. - Vital Signs Vital signs: Temp Pulse Resp BP Pulse Ox 100.5 F H 79 22 H 118/63 98 04/06/18 17:01 04/06/18 12:59 04/06/18 17:01 04/06/18 17:01 04/06/18 17:01 - Laboratory Result Diagrams: 04/06/18 13:08 04/06/18 13:08 Laboratory results interpreted by me: 04/06/18 04/06/18 04/06/18 13:08 13:08 13:08 WBC 15.7 H RBC 3.88 L MCV 102 H MCH 35.1 H RDW 14.9 H Plt Count 141 L Seg Neutrophils % 83.7 H Lymphocytes % 5.4 L Absolute Neutrophils 13.1 H Absolute Monocytes 1.6 H PT 15.9 H Carbonic Acid ABG pH ABG pCO2 ABG HCO3 ABG Total CO2 VBG pH VBG pCO2 Chloride 111 H Lactic Acid Total Bilirubin 2.8 H Ammonia NT-Pro-B Natriuret Pep Albumin 3.1 L Urine Blood 04/06/18 04/06/18 04/06/18 13:08 13:08 13:08 WBC RBC MCV MCH RDW Plt Count Seg Neutrophils % Lymphocytes % Absolute Neutrophils Absolute Monocytes PT Carbonic Acid ABG pH ABG pCO2 ABG HCO3 ABG Total CO2 VBG pH 7.47 H VBG pCO2 30.1 L Chloride Lactic Acid 2.3 H Total Bilirubin Ammonia NT-Pro-B Natriuret Pep 1330 H Albumin Urine Blood 04/06/18 04/06/18 04/06/18 13:08 13:47 14:18 WBC RBC MCV MCH RDW Plt Count Seg Neutrophils % Lymphocytes % Absolute Neutrophils Absolute Monocytes PT Carbonic Acid 0.76 L ABG pH 7.52 H ABG pCO2 25.1 L ABG HCO3 19.9 L ABG Total CO2 20.7 L VBG pH VBG pCO2 Chloride Lactic Acid Total Bilirubin Ammonia 79.7 H NT-Pro-B Natriuret Pep Albumin Urine Blood SMALL H - Diagnostic Test Radiology reviewed: Image reviewed, Reports reviewed - EKG Interpretation by Me EKG shows normal: Sinus rhythm Rate: Normal Rhythm: NSR When compared to previous EKG there are: No significant change Discharge - Discharge Clinical Impression: Acute on chronic systolic and diastolic heart failure, NYHA class 4, Sepsis, DNR (do not resuscitate) Alcoholic cirrhosis Qualifiers: Ascites presence: without ascites Qualified Code(s): K70.30 - Alcoholic cirrhosis of liver without ascites Altered mental status Qualifiers: Altered mental status type: transient alteration of awareness Qualified Code(s) : R40.4 - Transient alteration of awareness Pneumonia Qualifiers: Pneumonia type: aspiration pneumonia Lung location: lower lobe of lung Condition: Stable Disposition: ADMITTED INPATIENT Admitting Provider: Hospitalist Unit Admitted: [facility]
[2018-04-06 13:32] LABS: INTERNATIONAL RATION (INR) 1.21; PROTHROMBIN TIME 15.9 SEC (11.4-15.4); VENOUS BLOOD BASE EXCESS -0.9 mmol/L; VENOUS BLOOD HCO3 21.6 mmol/L (20-32); VENOUS BLOOD PCO2 30.1 mmHg (35-63); VENOUS BLOOD PH 7.47 (7.30-7.42)
[2018-04-06 13:34] LABS: ARTERIAL BLOOD FIO2 3L
[2018-04-06 13:49] LABS: ABSOLUTE BASOPHILS # (AUTO) 0.1 10^3/uL (0.0-0.2); ABSOLUTE LYMPHOCYTES (AUTO) 0.8 10^3/uL (0.5-4.7); ABSOLUTE MONOCYTES (AUTO) 1.6 10^3/uL (0.1-1.4); ABSOLUTE NEUT (AUTO) 13.1 10^3/uL (1.7-8.2); BASOPHILS % (AUTO) 0.3 % (0-2); EOSINOPHILS % (AUTO) 0.2 % (0-6); HEMATOCRIT 39.7 % (37.9-51.0); HEMOGLOBIN 13.6 g/dL (13.5-17.0); LYMPHOCYTES % (AUTO) 5.4 % (13-45); MEAN CORPUSCULAR HEMOGLOBIN 35.1 pg (27.0-33.4); MEAN CORPUSCULAR HGB CONC 34.3 g/dL (32.0-36.0); MEAN CORPUSCULAR VOLUME 102 fl (80-97); MONOCYTES % (AUTO) 10.4 % (3-13); PLATELET COUNT 141 10^3/uL (150-450); RED BLOOD COUNT 3.88 10^6/uL (4.35-5.55); RED CELL DISTRIBUTION WIDTH 14.9 % (11.5-14.0); SEGMENTED NEUTROPHILS % (AUTO) 83.7 % (42-78); TOTAL CELLS COUNTED % (AUTO) 100 %; WHITE BLOOD COUNT 15.7 10^3/uL (4.0-10.5)
[2018-04-06 13:50] LABS: ALANINE AMINOTRANSFERASE 28 U/L (21-72); ALBUMIN 3.1 g/dL (3.5-5.0); ALKALINE PHOSPHATASE 86 U/L (38-126); ANION GAP 8 (5-19); ASPARTATE AMINO TRANSFERASE 38 U/L (17-59); BILIRUBIN,DIRECT 0.4 mg/dL (0.0-0.4); BILIRUBIN,TOTAL 2.8 mg/dL (0.2-1.3); BLOOD UREA NITROGEN 9 mg/dL (7-20); CALCIUM 8.9 mg/dL (8.4-10.2); CARBON DIOXIDE 23 mmol/L (22-30); CHLORIDE 111 mmol/L (98-107); GLUCOSE 83 mg/dL (75-110); POTASSIUM 3.7 mmol/L (3.6-5.0); SODIUM 141.6 mmol/L (137-145); TOTAL PROTEIN 6.6 g/dL (6.3-8.2)
--- NOTE | 2018-04-06 14:02 | RADIOLOGY REPORT (SQ) ---
EXAM DESCRIPTION: CHEST SINGLE VIEW COMPLETED DATE/TIME: 04/06/2018 1:54 pm REASON FOR STUDY: bed 11 sepsis protocol COMPARISON: 03/11/2018 EXAM PARAMETERS: NUMBER OF VIEWS: One view. TECHNIQUE: Single frontal radiographic view of the chest acquired. RADIATION DOSE: NA LIMITATIONS: None. FINDINGS: LUNGS AND PLEURA: Patchy bilateral lower lobe airspace disease. MEDIASTINUM AND HILAR STRUCTURES: No masses. Contour normal. HEART AND VASCULAR STRUCTURES: Heart stable in size. Normal vasculature. BONES: No acute findings. HARDWARE: None in the chest. OTHER: No other significant finding. IMPRESSION: PATCHY BILATERAL LOWER LOBE AIRSPACE DISEASE COULD REPRESENT SUBSEGMENTAL ATELECTASIS, A SPIRATION, OR PNEUMONIA. TECHNICAL DOCUMENTATION: JOB ID: [id number] [employer]- All Rights Reserved Reading location - IP/workstation name: [email or web address]
[2018-04-06 14:04] LABS: TROPONIN I 0.057 ng/mL
[2018-04-06] MEDS ORDERED: VANCOMYCIN HCL INJ 1000 MG VIAL IV ONE (14:12)
[2018-04-06] MEDS ORDERED: NORMAL SALINE 1000 ML 2,000 ML IV ONE (14:13)
[2018-04-06] MEDS ORDERED: CEFEPIME 2 GM/D5W RTU 2 GM/50 ML RTUPB IV ONE (14:13)
[2018-04-06] MEDS ORDERED: ACETAMINOPHEN 650 MG SUPP.RECT PR ONE (14:40)
[2018-04-06 14:46] LABS: APPEARANCE,URINE SLIGHTLY-CLOUDY; BILIRUBIN,URINE NEGATIVE (NEGATIVE); COLOR,URINE YELLOW; GLUCOSE, URINE NEGATIVE (NEGATIVE); KETONES,URINE NEGATIVE (NEGATIVE); LEUKOCYTE ESTERASE,URINE NEGATIVE (NEGATIVE); NITRITE,URINE NEGATIVE (NEGATIVE); PROTEIN,URINE NEGATIVE (NEGATIVE); URINE SPECIFIC GRAVITY 1.012; UROBILINOGEN,URINE NEGATIVE mg/dL (<2.0)
[2018-04-06] MEDS ORDERED: DEXTROSE 40% GEL 15 GM TUBE PO PRN ×2 (15:43)
[2018-04-06] MEDS ORDERED: DEXTROSE 50%-WATER 25 GM/50 ML DISP.SYRIN IV PRN ×2 (15:43)
[2018-04-06] MEDS ORDERED: GLUCAGON,HUMAN RECOMB 1 MG INJ SUBCUT PRN (15:43)
[2018-04-06] MEDS ORDERED: NORMAL SALINE 1000 ML 1,000 ML IV PRN (15:43)
--- NOTE | 2018-04-06 16:17 | PDOC H&P ---
History of Present Illness Admission Date/PCP: 04/06/18 15:15 Patient complains of: lethary and SOB History of Present Illness: LAUREN JAIMES is a 68 year old male with history of alcoholic cirrhosis, CHF , and HTN who presents to the ER with one day history of worsening shortness of breath. Patient's provides the majority of the history. She states that he was in good health as recently as yesterday. However overnight he complained of SOB. She gave him moprhine a few times however SOB persisted. This AM continued to complain of breathing difficulty. ALso noted to be more lethargic. His temperature was not measured at home. Denies sick contacts, chills, CP, abdominal pain, nausea or vomiting. Due to weakness, EMS was called and patient brought to the ER. Here he was found to have temperature of 102F. Labs notable for leukocytosis. NH3 and pro-BNP elevated however not more than previous hospitalizations. CXR notable for patchy bilateral airspace disease concerning for PNA. Patient received 1st dose of Vanc/Cefepime in the ED. Blood cultures obtained. Admitted to hospitalist service for further management. Past Medical History Cardiac Medical History: Reports: Congestive Heart Failure, Hyperlipidema, Hypertension, Peripheral Vascular Disease Denies: DVT, Myocardial Infarction, Pulmonary Embolism Pulmonary Medical History: Denies: Asthma, Chronic Obstructive Pulmonary Disease (COPD) Neurological Medical History: Denies: Seizures Endocrine Medical History: Denies: Diabetes Mellitus Type 1, Diabetes Mellitus Type 2, Hyperthyroidism, Hypothyroidism GI Medical History: Reports: Cirrhosis, Gastroesophageal Reflux Disease Denies: Hepatitis Musculoskeltal Medical History: Reports: Arthritis Psychiatric Medical History: Reports: Depression, Post Traumatic Stress Disorder Past Surgical History Past Surgical History: Reports: Orthopedic Surgery - left knee, Vascular Surgery , Other - TIPS (Transjugular intrahepatic portosystemic shunt) and Devries Caval shunt Social History Information Source: Relative Lives with: Spouse/Significant other Smoking Status: Former Smoker Frequency of Alcohol Use: None - History of heavy EtOH use Hx Recreational Drug Use: No Drugs: None Hx Prescription Drug Abuse: No Family History Family History: None, Reviewed & Not Pertinent, CAD Parental Family History Reviewed: No Children Family History Reviewed: NA Sibling(s) Family History Reviewed.: NA Medication/Allergy Home Medications: Aspirin [Aspirin EC] 81 mg PO DAILY 04/06/18 Eplerenone [Inspra] 100 mg PO BID 04/06/18 Ferrous Sulfate [Feosol 325 mg Tablet] 325 mg PO DAILY 04/06/18 Furosemide [Lasix 40 mg Tablet] 40 mg PO DAILY 04/06/18 Magnesium Oxide [Mag-Ox 400 mg Tablet] 400 mg PO BID 04/06/18 Multivitamin [Multivitamins] 1 each PO DAILY 04/06/18 Omeprazole 40 mg PO BID 04/06/18 Ranitidine HCl [Zantac] 150 mg PO BID 04/06/18 Sennosides/Docusate Sodium [Docusate Sodium-Senna Tablet] 2 tab PO BID 04/06/18 Simvastatin [Zocor 20 mg Tablet] 20 mg PO QHS 04/06/18 Sucralfate [Carafate 1 gm Tablet] 1 gm PO BID 04/06/18 Allergies/Adverse Reactions: bee venom protein (honey bee) Allergy (Unknown, Verified 03/11/18 08:11) morphine Allergy (Verified 03/11/18 18:38) bee stings Allergy (Uncoded 03/11/18 08:11) Review of Systems All systems: reviewed and no additional remarkable complaints except as stated Physical Exam Vital Signs: Temp Pulse Resp BP Pulse Ox 102.0 F H 79 17 106/47 L 99 04/06/18 15:01 04/06/18 12:59 04/06/18 15:01 04/06/18 15:01 04/06/18 15:01 General appearance: PRESENT: no acute distress, obese, other - Sleepy but arousable, snorning Head exam: PRESENT: atraumatic, normocephalic Mouth exam: PRESENT: moist Respiratory exam: PRESENT: rhonchi, unlabored, other - On supplemental O2. ABSENT: wheezes Cardiovascular exam: PRESENT: +S1, +S2. ABSENT: tachycardia GI/Abdominal exam: PRESENT: soft. ABSENT: tenderness Extremities exam: PRESENT: +1 edema Neurological exam: PRESENT: alert, awake, oriented to person, oriented to place , other - Unable to do full neuro exam due to somnulence. ABSENT: oriented to time, oriented to situation Skin exam: PRESENT: dry, warm Results Laboratory Results: Labs- All tests 24 hr 04/06/18 04/06/18 04/06/18 13:08 13:08 13:08 WBC 15.7 H RBC 3.88 L Hgb 13.6 Hct 39.7 MCV 102 H MCH 35.1 H MCHC 34.3 RDW 14.9 H Plt Count 141 L Seg Neutrophils % 83.7 H Lymphocytes % 5.4 L Monocytes % 10.4 Eosinophils % 0.2 Basophils % 0.3 Absolute Neutrophils 13.1 H Absolute Lymphocytes 0.8 Absolute Monocytes 1.6 H Absolute Eosinophils 0.0 Absolute Basophils 0.1 PT 15.9 H INR 1.21 Carbonic Acid HCO3/H2CO3 Ratio ABG pH ABG pCO2 ABG pO2 ABG HCO3 ABG Total CO2 ABG O2 Saturation ABG Base Excess VBG pH VBG pCO2 VBG HCO3 VBG Base Excess FiO2 Sodium 141.6 Potassium 3.7 Chloride 111 H Carbon Dioxide 23 Anion Gap 8 BUN 9 Creatinine 0.86 Est GFR ( Amer) > 60 Est GFR (Non-Af Amer) > 60 Glucose 83 Lactic Acid Calcium 8.9 Total Bilirubin 2.8 H Direct Bilirubin 0.4 Neonat Total Bilirubin Not Reportable Neonat Direct Bilirubin Not Reportable Neonat Indirect Bili Not Reportable AST 38 ALT 28 Alkaline Phosphatase 86 Ammonia Troponin I NT-Pro-B Natriuret Pep Total Protein 6.6 Albumin 3.1 L Urine Color Urine Appearance Urine pH Ur Specific [place] Urine Protein Urine Glucose (UA) Urine Ketones Urine Blood Urine Nitrite Urine Bilirubin Urine Urobilinogen Ur Leukocyte Esterase Urine WBC (Auto) Urine RBC (Auto) Urine Mucus (Auto) Urine Ascorbic Acid 04/06/18 04/06/18 04/06/18 13:08 13:08 13:08 WBC RBC Hgb Hct MCV MCH MCHC RDW Plt Count Seg Neutrophils % Lymphocytes % Monocytes % Eosinophils % Basophils % Absolute Neutrophils Absolute Lymphocytes Absolute Monocytes Absolute Eosinophils Absolute Basophils PT INR Carbonic Acid HCO3/H2CO3 Ratio ABG pH ABG pCO2 ABG pO2 ABG HCO3 ABG Total CO2 ABG O2 Saturation ABG Base Excess VBG pH 7.47 H VBG pCO2 30.1 L VBG HCO3 21.6 VBG Base Excess -0.9 FiO2 Sodium Potassium Chloride Carbon Dioxide Anion Gap BUN Creatinine Est GFR ( Amer) Est GFR (Non-Af Amer) Glucose Lactic Acid 2.3 H Calcium Total Bilirubin Direct Bilirubin Neonat Total Bilirubin Neonat Direct Bilirubin Neonat Indirect Bili AST ALT Alkaline Phosphatase Ammonia Troponin I 0.057 NT-Pro-B Natriuret Pep 1330 H Total Protein Albumin Urine Color Urine Appearance Urine pH Ur Specific [place] Urine Protein Urine Glucose (UA) Urine Ketones Urine Blood Urine Nitrite Urine Bilirubin Urine Urobilinogen Ur Leukocyte Esterase Urine WBC (Auto) Urine RBC (Auto) Urine Mucus (Auto) Urine Ascorbic Acid 04/06/18 04/06/18 04/06/18 13:08 13:47 14:18 WBC RBC Hgb Hct MCV MCH MCHC RDW Plt Count Seg Neutrophils % Lymphocytes % Monocytes % Eosinophils % Basophils % Absolute Neutrophils Absolute Lymphocytes Absolute Monocytes Absolute Eosinophils Absolute Basophils PT INR Carbonic Acid 0.76 L HCO3/H2CO3 Ratio 26:1 ABG pH 7.52 H ABG pCO2 25.1 L ABG pO2 83.9 ABG HCO3 19.9 L ABG Total CO2 20.7 L ABG O2 Saturation 97.3 ABG Base Excess -1.2 VBG pH VBG pCO2 VBG HCO3 VBG Base Excess FiO2 3L Sodium Potassium Chloride Carbon Dioxide Anion Gap BUN Creatinine Est GFR ( Amer) Est GFR (Non-Af Amer) Glucose Lactic Acid Calcium Total Bilirubin Direct Bilirubin Neonat Total Bilirubin Neonat Direct Bilirubin Neonat Indirect Bili AST ALT Alkaline Phosphatase Ammonia 79.7 H Troponin I NT-Pro-B Natriuret Pep Total Protein Albumin Urine Color YELLOW Urine Appearance SLIGHTLY-CLOUDY Urine pH 5.0 Ur Specific [place] 1.012 Urine Protein NEGATIVE Urine Glucose (UA) NEGATIVE Urine Ketones NEGATIVE Urine Blood SMALL H Urine Nitrite NEGATIVE Urine Bilirubin NEGATIVE Urine Urobilinogen NEGATIVE Ur Leukocyte Esterase NEGATIVE Urine WBC (Auto) 1 Urine RBC (Auto) 1 Urine Mucus (Auto) RARE Urine Ascorbic Acid NEGATIVE Impressions: Chest X-Ray 04/06/18 12:57 IMPRESSION: PATCHY BILATERAL LOWER LOBE AIRSPACE DISEASE COULD REPRESENT SUBSEGMENTAL ATELECTASIS, ASPIRATION, OR PNEUMONIA. Assessment & Plan - Diagnosis (1) Pneumonia Qualifiers: Pneumonia type: aspiration pneumonia Lung location: lower lobe of lung Is this a current diagnosis for this admission?: Yes Plan: Presented with fevers, leukocytosis, and AMS. CXR concerning for lower lobe infiltrate which may represent aspiration PNA vs CAP. Patient has had multiple recent hospitalizations including 2 weeks ago for sepsis like picture which resolved after treatment for 48 hours with IV antibiotics (no source was identified) - Blood cultures obtained - Received IV Vanc/Cefepime in the ED, will continue Cefepime for now. NO history of MRSA on file - Ordered chest physiotherapy and neb tx - Supplemental O2 as required, goal O2>90% (2) Acute on chronic systolic and diastolic heart failure, NYHA class 4 Is this a current diagnosis for this admission?: Yes Plan: History of HFrEF, last TTE was 03/2018 with EF of 20-25% - Volume status will need to be closely monitored- - Holding HF meds given low BP. OK to re-start when clinically improved (3) Alcoholic cirrhosis Qualifiers: Ascites presence: without ascites Qualified Code(s): K70.30 - Alcoholic cirrhosis of liver without ascites Is this a current diagnosis for this admission?: Yes Plan: Long standing hx, s/p TIPS - NH3 78 at admission, CTM (4) Altered mental status Qualifiers: Altered mental status type: transient alteration of awareness Qualified Code(s): R40.4 - Transient alteration of awareness Is this a current diagnosis for this admission?: Yes Plan: LIkely secondary to active, acute infection. Expect resolution with IV antibiotics (5) DNR (do not resuscitate) Is this a current diagnosis for this admission?: Yes Plan: Pt has living will. Code status is DNI/DNR - Time Time Spent: 50 to 70 Minutes Anticipated discharge: Home with Homehealth, Acute Rehab Within: within 72 hours - Inpatient Certification Medical Necessity: Need Close Monitoring Due to Risk of Patient Decompensation, Need for IV Antibiotics
[2018-04-06] MEDS: CEFEPIME HCL 2 GM in DEXTROSE 5%-WATER 50 ML IV SCH (16:54)
[2018-04-06] MEDS: SUCRALFATE 1 GM TABLET PO SCH (18:56)
--- NOTE | 2018-04-06 19:07 | EKG REPORT ---
SEVERITY:- ABNORMAL ECG - SINUS RHYTHM INFERIOR INFARCT, AGE INDETERMINATE LATERAL LEADS ARE ALSO INVOLVED PROLONGED QT INTERVAL : Confirmed by: Jaxon Doran 06-Apr-2018 19:06:53
[2018-04-06] MEDS: IPRATROPIUM/ALBUTEROL 0.5-2.5 MG/3 ML AMPUL NEB SCH (19:42)
[2018-04-06] MEDS ORDERED: CEFEPIME 2 GM/D5W RTU 2 GM/50 ML RTUPB IV SCH (22:00)
[2018-04-07 05:50] LABS: ABSOLUTE BASOPHILS # (AUTO) 0.1 10^3/uL (0.0-0.2); ABSOLUTE EOSINOPHILS # (AUTO) 0.1 10^3/uL (0.0-0.6); ABSOLUTE LYMPHOCYTES (AUTO) 1.5 10^3/uL (0.5-4.7); ABSOLUTE MONOCYTES (AUTO) 1.4 10^3/uL (0.1-1.4); ABSOLUTE NEUT (AUTO) 10.8 10^3/uL (1.7-8.2); BASOPHILS % (AUTO) 0.6 % (0-2); EOSINOPHILS % (AUTO) 0.6 % (0-6); HEMATOCRIT 35.4 % (37.9-51.0); HEMOGLOBIN 11.9 g/dL (13.5-17.0); LYMPHOCYTES % (AUTO) 11.1 % (13-45); MEAN CORPUSCULAR HEMOGLOBIN 34.6 pg (27.0-33.4); MEAN CORPUSCULAR HGB CONC 33.5 g/dL (32.0-36.0); MEAN CORPUSCULAR VOLUME 103 fl (80-97); MONOCYTES % (AUTO) 10.1 % (3-13); RED BLOOD COUNT 3.43 10^6/uL (4.35-5.55); RED CELL DISTRIBUTION WIDTH 14.7 % (11.5-14.0); SEGMENTED NEUTROPHILS % (AUTO) 77.6 % (42-78); TOTAL CELLS COUNTED % (AUTO) 100 %; WHITE BLOOD COUNT 13.9 10^3/uL (4.0-10.5)
[2018-04-07 06:01] LABS: ANION GAP 9 (5-19); BLOOD UREA NITROGEN 14 mg/dL (7-20); CALCIUM 7.8 mg/dL (8.4-10.2); CARBON DIOXIDE 21 mmol/L (22-30); CHLORIDE 111 mmol/L (98-107); GLUCOSE 79 mg/dL (75-110); POTASSIUM 4.2 mmol/L (3.6-5.0); SODIUM 140.6 mmol/L (137-145)
[2018-04-07 06:04] LABS: PLATELET COUNT 91 10^3/uL (150-450)
[2018-04-07] MEDS: IPRATROPIUM/ALBUTEROL 0.5-2.5 MG/3 ML AMPUL NEB SCH ×3 (08:03→20:02)
--- NOTE | 2018-04-07 09:15 | PDOC PROGRESS REPORT ---
Subjective Progress Note for:: 04/07/18 Subjective:: Patient is seen resting in bed. He denies any chest pain, shortness of breath or dyspnea at rest. He continues to have harsh cough, productive at times. He denies any nausea, vomiting or diarrhea. He denies any abdominal pain. He denies any significant arthralgias or myalgias. Remaining review of systems are negative Reason For Visit: PNEUMONIA Physical Exam Vital Signs: Temp Pulse Resp BP Pulse Ox 98.5 F 59 L 16 110/52 L 97 04/07/18 08:03 04/07/18 08:03 04/07/18 08:03 04/07/18 08:03 04/07/18 08:03 Pulse Oximeter Continuous Start: 04/06/18 15: 43 Freq: RTQ4 Status: Active Document 04/07/18 04:39 EST (Rec: 04/07/18 04:39 EST [email or web address]) Pulse Oximetry Assessment Oxygen Saturation (92-100) 95 Oxygen Flow Rate (L/min) 2 Oxygen Delivery Method Nasal Cannula Fraction of Inspired Oxygen (FIO2) 28 Equipment Usage Equipment in Use Continuous SpO2 Machine # 9 Intake & Output 04/06/18 04/07/18 04/08/18 06:59 06:59 06:59 Intake Total 2466 Output Total 575 Balance 1891 Weight 96 kg General appearance: PRESENT: no acute distress, well-developed, well-nourished Head exam: PRESENT: atraumatic, normocephalic Eye exam: PRESENT: conjunctiva pink, EOMI, PERRLA. ABSENT: scleral icterus Ear exam: PRESENT: bleeding Mouth exam: PRESENT: moist, tongue midline Neck exam: ABSENT: carotid bruit, JVD, lymphadenopathy, thyromegaly Respiratory exam: PRESENT: rhonchi, symmetrical, unlabored Cardiovascular exam: PRESENT: RRR. ABSENT: diastolic murmur, rubs, systolic murmur Pulses: PRESENT: normal dorsalis pedis pul Vascular exam: PRESENT: normal capillary refill GI/Abdominal exam: PRESENT: normal bowel sounds, soft. ABSENT: distended, guarding, mass, organolmegaly, rebound, tenderness Rectal exam: PRESENT: deferred Extremities exam: PRESENT: full ROM. ABSENT: calf tenderness, clubbing, pedal edema Musculoskeletal exam: PRESENT: ambulatory, full ROM, normal inspection Neurological exam: PRESENT: alert, awake, oriented to person, oriented to place , oriented to time, oriented to situation, CN II-XII grossly intact. ABSENT: motor sensory deficit Psychiatric exam: PRESENT: appropriate affect, normal mood. ABSENT: homicidal ideation, suicidal ideation Results Laboratory Results: 04/07/18 04:17 04/07/18 04:17 04/06/18 04/07/18 04/07/18 16:55 04:17 04:17 WBC 13.9 H RBC 3.43 L Hgb 11.9 L Hct 35.4 L MCV 103 H MCH 34.6 H MCHC 33.5 RDW 14.7 H Plt Count 91 L Seg Neutrophils % 77.6 Lymphocytes % 11.1 L Monocytes % 10.1 Eosinophils % 0.6 Basophils % 0.6 Absolute Neutrophils 10.8 H Absolute Lymphocytes 1.5 Absolute Monocytes 1.4 Absolute Eosinophils 0.1 Absolute Basophils 0.1 Sodium 140.6 Potassium 4.2 Chloride 111 H Carbon Dioxide 21 L Anion Gap 9 BUN 14 Creatinine 0.93 Est GFR ( Amer) > 60 Est GFR (Non-Af Amer) > 60 Glucose 79 Lactic Acid 1.3 Calcium 7.8 L Impressions: Chest X-Ray 04/06/18 12:57 IMPRESSION: PATCHY BILATERAL LOWER LOBE AIRSPACE DISEASE COULD REPRESENT SUBSEGMENTAL ATELECTASIS, ASPIRATION, OR PNEUMONIA. Assessment & Plan - Diagnosis (1) Pneumonia Qualifiers: Pneumonia type: aspiration pneumonia Lung location: lower lobe of lung Is this a current diagnosis for this admission?: Yes Plan: Continue antibiotics, nebulizer treatments and IV fluids (2) Alcoholic cirrhosis Qualifiers: Ascites presence: without ascites Qualified Code(s): K70.30 - Alcoholic cirrhosis of liver without ascites Is this a current diagnosis for this admission?: Yes Plan: Continue home medications (3) DNR (do not resuscitate) Is this a current diagnosis for this admission?: Yes Plan: Per patient's request. Followed by palliative care (4) Acute on chronic combined systolic and diastolic CHF (congestive heart failure) Is this a current diagnosis for this admission?: Yes Plan: Patient is presently euvolemic.Will discontinue IV fluids (5) Altered mental status Qualifiers: Altered mental status type: somnolence Qualified Code(s): R40.0 - Somnolence Is this a current diagnosis for this admission?: Yes Plan: Improving with IV antibiotics and hydration - Time Time Spent with patient: 15-24 minutes Smoking Cessation Education: 3 to 10 minutes Medications reviewed and adjusted accordingly: Yes Anticipated discharge: Home with Homehealth
[2018-04-07] MEDS ORDERED: (PENDING PHARMACY ID) (Ranitidine Hcl [Zantac 150 Mg Tablet] 150 MG) PO SCH (10:00)
[2018-04-07] MEDS ORDERED: ASPIRIN 81 MG TABLET, ENT COATED PO SCH (10:00)
[2018-04-07] MEDS ORDERED: FUROSEMIDE 40 MG TABLET PO SCH (10:00)
[2018-04-07] MEDS ORDERED: FERROUS SULFATE 325 MG TABLET PO SCH (10:00)
[2018-04-07] MEDS ORDERED: ENOXAPARIN SODIUM INJ 40 MG/0.4 ML DISP.SYRIN SUBCUT SCH (10:00)
[2018-04-07] MEDS ORDERED: EPLERENONE 100 MG PO SCH (10:00)
[2018-04-07] MEDS: SUCRALFATE 1 GM TABLET PO SCH ×2 (10:56→17:23)
[2018-04-07] MEDS: MAGNESIUM OXIDE 400 MG TABLET PO SCH ×2 (10:57→17:24)
[2018-04-07] MEDS: FAMOTIDINE 20 MG TABLET PO SCH ×2 (10:57→17:23)
[2018-04-07] MEDS: SENNOSIDES/DOCUSATE 8.6-50 MG 1 EACH TABLET PO SCH ×2 (10:57→17:26)
[2018-04-07] MEDS: EPLERENONE 25 MG TABLET PO SCH ×2 (10:58→17:24)
[2018-04-07] MEDS: CEFEPIME HCL 2 GM in DEXTROSE 5%-WATER 50 ML IV SCH ×2 (10:58→21:32)
[2018-04-07] MEDS: LACTULOSE SYRUP 20 GM/30 ML UDCUP PO SCH ×2 (14:14→21:41)
[2018-04-07] MEDS: LANSOPRAZOLE 30 MG TAB.RAP.DR PO SCH (17:25)
[2018-04-07] MEDS ORDERED: SIMVASTATIN 10 MG TABLET PO SCH (22:00)
[2018-04-07] MEDS ORDERED: CARVEDILOL 3.125 MG TABLET PO SCH (22:00)
[2018-04-08 05:07] LABS: ABSOLUTE EOSINOPHILS # (AUTO) 0.4 10^3/uL (0.0-0.6); ABSOLUTE MONOCYTES (AUTO) 1.4 10^3/uL (0.1-1.4); ABSOLUTE NEUT (AUTO) 5.9 10^3/uL (1.7-8.2); BASOPHILS % (AUTO) 0.5 % (0-2); EOSINOPHILS % (AUTO) 3.6 % (0-6); HEMATOCRIT 33.6 % (37.9-51.0); HEMOGLOBIN 11.5 g/dL (13.5-17.0); LYMPHOCYTES % (AUTO) 20.6 % (13-45); MEAN CORPUSCULAR HGB CONC 34.3 g/dL (32.0-36.0); MEAN CORPUSCULAR VOLUME 102 fl (80-97); MONOCYTES % (AUTO) 14.5 % (3-13); PLATELET COUNT 106 10^3/uL (150-450); RED BLOOD COUNT 3.29 10^6/uL (4.35-5.55); RED CELL DISTRIBUTION WIDTH 14.9 % (11.5-14.0); SEGMENTED NEUTROPHILS % (AUTO) 60.8 % (42-78); TOTAL CELLS COUNTED % (AUTO) 100 %; WHITE BLOOD COUNT 9.7 10^3/uL (4.0-10.5)
[2018-04-08 05:29] LABS: ANION GAP 7 (5-19); BLOOD UREA NITROGEN 13 mg/dL (7-20); CALCIUM 8.1 mg/dL (8.4-10.2); CARBON DIOXIDE 21 mmol/L (22-30); CHLORIDE 112 mmol/L (98-107); GLUCOSE 74 mg/dL (75-110); POTASSIUM 3.4 mmol/L (3.6-5.0)
[2018-04-08] MEDS: LANSOPRAZOLE 30 MG TAB.RAP.DR PO SCH (06:17)
[2018-04-08] MEDS: LACTULOSE SYRUP 20 GM/30 ML UDCUP PO SCH (06:24)
[2018-04-08] MEDS: IPRATROPIUM/ALBUTEROL 0.5-2.5 MG/3 ML AMPUL NEB SCH (07:53)
[2018-04-08] MEDS ORDERED: POTASSIUM CHLORIDE 10 MEQ TABLET.SA PO ONE (08:30)
[2018-04-08 09:14] VITALS: BP 133/60
[2018-04-08] MEDS ORDERED: LEVOFLOXACIN 750 MG TABLET PO SCH (10:00)
--- NOTE | 2018-04-08 10:20 | PDOC DISCHARGE SUMMARY ---
General - Admit/Disc Date/PCP Admission Date/Primary Care Provider: 04/06/18 15:15 Discharge Date: 04/08/18 - Discharge Diagnosis (1) Pneumonia Is this a current diagnosis for this admission?: Yes Summary: Continue levaquin for 5 more days (2) Alcoholic cirrhosis Is this a current diagnosis for this admission?: Yes Summary: Continue current medications. Follow up with Palliative Care (3) DNR (do not resuscitate) Is this a current diagnosis for this admission?: Yes (4) Acute on chronic combined systolic and diastolic CHF (congestive heart failure) Is this a current diagnosis for this admission?: Yes Summary: Continue current medications. Patient's blood pressure did not tolerate BILL or ARB in the past (5) Altered mental status Is this a current diagnosis for this admission?: Yes Summary: Resolved, secondary to sepsis and pneumonia which is improved. - Additional Information Resuscitation Status: Do Not Resuscitate Discharge Diet: Cardiac Discharge Activity: Activity As Tolerated, Balance Activity w/Rest, Weigh Daily Prescriptions: Albuterol Sulfate [Ventolin Hfa] 1 - 2 puff IH Q4 PRN #1 hfa.aer.ad PRN Reason: Levofloxacin [Levaquin 750 mg Tablet] 750 mg PO DAILY #5 tablet Home Medications: Aspirin [Aspirin EC] 81 mg PO DAILY 04/06/18 Eplerenone [Inspra] 100 mg PO BID 04/06/18 Ferrous Sulfate [Feosol 325 mg Tablet] 325 mg PO DAILY 04/06/18 Furosemide [Lasix 40 mg Tablet] 40 mg PO DAILY 04/06/18 Magnesium Oxide [Mag-Ox 400 mg Tablet] 400 mg PO BID 04/06/18 Multivitamin [Multivitamins] 1 each PO DAILY 04/06/18 Omeprazole 40 mg PO BID 04/06/18 Ranitidine HCl [Zantac 150 mg Tablet] 150 mg PO BID 04/06/18 Sennosides/Docusate Sodium [Docusate Sodium-Senna Tablet] 2 tab PO BID 04/06/18 Simvastatin [Zocor 20 mg Tablet] 20 mg PO QHS 04/06/18 Sucralfate [Carafate 1 gm Tablet] 1 gm PO BID 04/06/18 Carvedilol Q12 04/07/18 Albuterol Sulfate [Ventolin Hfa] 1 - 2 puff IH Q4 PRN #1 hfa.aer.ad 04/08/18 Levofloxacin [Levaquin 750 mg Tablet] 750 mg PO DAILY #5 tablet 04/08/18 History of Present Illness Patient complains of: Altered mental status and fever History of Present Illness: LAUREN JAIMES is a 68 year old male with history of alcoholic cirrhosis, CHF , and HTN who presents to the ER with one day history of worsening shortness of breath. Patient's provides the majority of the history. She states that he was in good health as recently as yesterday. However overnight he complained of SOB. She gave him moprhine a few times however SOB persisted. This AM continued to complain of breathing difficulty. ALso noted to be more lethargic. His temperature was not measured at home. Denies sick contacts, chills, CP, abdominal pain, nausea or vomiting. Due to weakness, EMS was called and patient brought to the ER. Here he was found to have temperature of 102F. Labs notable for leukocytosis. NH3 and pro-BNP elevated however not more than previous hospitalizations. CXR notable for patchy bilateral airspace disease concerning for PNA. Patient received 1st dose of Vanc/Cefepime in the ED. Blood cultures obtained. Admitted to hospitalist service for further management. Hospital Course Hospital Course: Patient was admitted to IMCU on telemetry. He was started on IV broad spectrum antibiotics after cultures were obtained. He was given nebulizer treatments as well. His cough improved. His lethargy and confusion improved overnight. He continued to improve over the next 24 hrs. He has been weaned off oxygen. His leucocytosis and fever has resolved. He is insistant that he is going home today. He was transitioned to oral levaquin and will be discharged home with home health Physical Exam Vital Signs: Temp Pulse Resp BP Pulse Ox 98.5 F 76 16 112/61 94 04/08/18 08:49 04/08/18 08:49 04/08/18 08:49 04/08/18 08:49 04/08/18 08:49 Pulse Oximeter Continuous Start: 04/06/18 15: 43 Freq: RTQ4 Status: Complete Document 04/07/18 08:03 [facility] (Rec: 04/07/18 09:23 CW [id number]) Pulse Oximetry Assessment Oxygen Saturation (92-100) 96 Oxygen Flow Rate (L/min) 2 Oxygen Delivery Method Nasal Cannula Equipment Usage Equipment Discontinued Continuous SpO2 Machine # 9 Intake & Output 04/07/18 04/08/18 04/09/18 06:59 06:59 06:59 Intake Total 2466 1248 Output Total 575 1200 Balance 1891 48 Weight 96 kg 98.4 kg General appearance: PRESENT: no acute distress, well-developed, well-nourished Head exam: PRESENT: atraumatic, normocephalic Eye exam: PRESENT: conjunctiva pink, EOMI, PERRLA. ABSENT: scleral icterus Ear exam: PRESENT: normal external ear exam Mouth exam: PRESENT: moist, tongue midline Neck exam: ABSENT: carotid bruit, JVD, lymphadenopathy, thyromegaly Respiratory exam: PRESENT: crackles - bilateral bases, symmetrical, unlabored. ABSENT: rales, rhonchi, wheezes Cardiovascular exam: PRESENT: RRR. ABSENT: diastolic murmur, rubs, systolic murmur Pulses: PRESENT: normal carotid pulses, normal radial pulses Vascular exam: PRESENT: normal capillary refill GI/Abdominal exam: PRESENT: normal bowel sounds, soft. ABSENT: distended, guarding, mass, organolmegaly, rebound, tenderness Rectal exam: PRESENT: deferred Extremities exam: PRESENT: full ROM. ABSENT: calf tenderness, clubbing, pedal edema Musculoskeletal exam: PRESENT: ambulatory, full ROM, normal inspection Neurological exam: PRESENT: alert, awake, oriented to person, oriented to place , oriented to time, oriented to situation, CN II-XII grossly intact. ABSENT: motor sensory deficit Psychiatric exam: PRESENT: appropriate affect, normal mood. ABSENT: homicidal ideation, suicidal ideation Skin exam: PRESENT: dry, intact, warm. ABSENT: cyanosis, rash Results Laboratory Results: 04/08/18 03:53 04/08/18 03:53 04/08/18 04/08/18 03:53 03:53 WBC 9.7 RBC 3.29 L Hgb 11.5 L Hct 33.6 L MCV 102 H MCH 35.0 H MCHC 34.3 RDW 14.9 H Plt Count 106 L Seg Neutrophils % 60.8 Lymphocytes % 20.6 Monocytes % 14.5 H Eosinophils % 3.6 Basophils % 0.5 Absolute Neutrophils 5.9 Absolute Lymphocytes 2.0 Absolute Monocytes 1.4 Absolute Eosinophils 0.4 Absolute Basophils 0.0 Sodium 140.0 Potassium 3.4 L Chloride 112 H Carbon Dioxide 21 L Anion Gap 7 BUN 13 Creatinine 0.77 Est GFR ( Amer) > 60 Est GFR (Non-Af Amer) > 60 Glucose 74 L Calcium 8.1 L Magnesium 1.8 Impressions: Chest X-Ray 04/06/18 12:57 IMPRESSION: PATCHY BILATERAL LOWER LOBE AIRSPACE DISEASE COULD REPRESENT SUBSEGMENTAL ATELECTASIS, ASPIRATION, OR PNEUMONIA. Qualifiers - * PATIENT BEING DISCHARGED WITH ANY OF THE FOLLOWING DIAGNOSIS: No Plan Discharge Plan: Home with home health Time Spent: Less than 30 Minutes
--- NOTE | 2018-04-21 14:58 | Physician Advisory Note ---
Physician Advisor ProgressNote .: Pursuant to the plan for [facility] include [facility] beds at the [facility], I have reviewed the medical record for this patient. Physician Advisor Statement: Asked to review chart r.e. questions from [facility]: Sepsis dx appears to be supported: pt w/AMS/lethargy w/total GCS 14, MAP down to 60s, thrombocytopenia <150, TBili up to 2.8 when baseline TBili appears to be mid-1s, lactate 2.3, fever, leukocytosis, tachypnea; no tachycardia but on beta-sherif to prevent that - more than meets both Sepsis-2 & Sepsis-3 criteria for dx sepsis. Given 2L IVF wide open in ED, then 50ml/hr, cx's, & prompt abx. No evidence found for dx of acute systolic CHF: see above. Continued on usual po dose of Lasix throughout hospitalization, no other diuretic given, Is>Os. CK
== END 2018-04-08 09:16 | disposition home health service (06) | DRG 871 ==
LOC: ER 12:50 → EH 15:15 → 3N 17:44
PROVIDERS: ADMIT Family Medicine; ATTEND Family Medicine
PROC: 3E0F73Z Introduction of Anti-inflammatory into Respiratory Tract, Via Natural or Artificial Opening (ICD-10-PCS; principal; 2018-04-06)
DX: A41.9 Sepsis, unspecified organism (principal); J18.9 Pneumonia, unspecified organism; I50.42 Chronic combined systolic (congestive) and diastolic (congestive) heart failure; Z66 Do not resuscitate; K70.30 Alcoholic cirrhosis of liver without ascites; I11.0 Hypertensive heart disease with heart failure; M19.90 Unspecified osteoarthritis, unspecified site; F32.9 Major depressive disorder, single episode, unspecified; I73.9 Peripheral vascular disease, unspecified; F43.10 Post-traumatic stress disorder, unspecified; Z96.89 Presence of other specified functional implants; Z79.82 Long term (current) use of aspirin; Z88.6 Allergy status to analgesic agent; Z91.030 Bee allergy status; Z87.891 Personal history of nicotine dependence
CPT/HCPCS: 36415; 51702; 71045; 80048; 80053; 81001; 82140; 82803; 83605; 83735; 83880; 84484; 85025; 85610; 87040; 87086; 93005; 93010; 94640; 94667; 94668; 94762; 96365; 99285; J0692; J3370; J3490; J7030; J7620

== ENCOUNTER 2019-07-08 08:54 | Day surgery (SDC) | payer OTHER, MEDICARE ==
[~2019-07-08 08:54] MED LIST: CHONDR SU A NA/HYALUR INTRAOC KIT (SURGICARE) ONE; EPINEPHRINE INJ/PF 1 MG/1 ML AMPULE ONE; KETOROLAC TROMETHAMINE 0.45% 4 DROP/0.4 ML DROPERETTE OD PRN; LIDOCAINE 1%/PHENYLEPHRINE 1.5% 1 ML VIAL ONE; TETRACAINE HCL 0.5% OPH SOLN 0.6 ML DROPERETTE OD PRN; TOBRAMYCIN SULFATE/DEXAMETH OPH OINTMENT 3.5 GM ONE
[2019-07-08] MEDS: TETRACAINE HCL 0.5% OPH SOLN 4 ML OD PRN ×3 (09:32→10:05)
[2019-07-08] MEDS: CYCLOPENTOLATE 0.2%/PHENYLEPHRINE 1% OPH SOLN 2 ML OD PRN ×3 (09:33→09:53)
[2019-07-08] MEDS: BESIFLOXACIN HCL 0.6% OPH SUSP 5 ML BOTTLE OD PRN ×4 (09:33→10:27)
[2019-07-08] MEDS: TROPICAMIDE 1% OPH SOLN 3 ML OD PRN ×3 (09:33→09:53)
[2019-07-08] MEDS ORDERED: MIDAZOLAM 2 MG/2 ML INJ ONE (09:47)
[2019-07-08] MEDS ORDERED: FENTANYL CITRATE INJ/PF 100 MCG/2 ML AMPUL ONE (09:48)
[2019-07-08] MEDS: DORZOLAMIDE HCL 2%/TIMOLOL MALEAT 0.5% OPH SOLN 10 ML OD PRN ×2 (10:27)
== END 2019-07-08 11:08 | disposition home or self-care (01) ==
LOC: SC 08:54
PROVIDERS: ATTEND Ophthalmology
DX: H25.11 Age-related nuclear cataract, right eye (principal); E78.00 Pure hypercholesterolemia, unspecified; J44.9 Chronic obstructive pulmonary disease, unspecified; K21.9 Gastro-esophageal reflux disease without esophagitis; F17.210 Nicotine dependence, cigarettes, uncomplicated; I11.0 Hypertensive heart disease with heart failure; I50.9 Heart failure, unspecified; K70.30 Alcoholic cirrhosis of liver without ascites; I42.9 Cardiomyopathy, unspecified; D64.9 Anemia, unspecified; Z79.82 Long term (current) use of aspirin; Z79.899 Other long term (current) drug therapy
CPT/HCPCS: 66984; V2632; J2250; J3490 ×3; J0171; J3010; J2370; 142

== ENCOUNTER 2019-07-22 10:52 | Day surgery (SDC) | payer OTHER, MEDICARE ==
[~2019-07-22 10:52] MED LIST changes: -KETOROLAC TROMETHAMINE 0.45% 4 DROP/0.4 ML DROPERETTE OD PRN; -TETRACAINE HCL 0.5% OPH SOLN 0.6 ML DROPERETTE OD PRN; -TOBRAMYCIN SULFATE/DEXAMETH OPH OINTMENT 3.5 GM ONE
[2019-07-22] MEDS: CYCLOPENTOLATE 0.2%/PHENYLEPHRINE 1% OPH SOLN 2 ML OS PRN ×3 (11:50→12:10)
[2019-07-22] MEDS: BESIFLOXACIN HCL 0.6% OPH SUSP 5 ML BOTTLE OS PRN ×4 (11:50→12:39)
[2019-07-22] MEDS: KETOROLAC TROMETHAMINE 0.45% 4 DROP/0.4 ML DROPERETTE OS PRN ×2 (11:50→12:10)
[2019-07-22] MEDS: TROPICAMIDE 1% OPH SOLN 3 ML OS PRN ×3 (11:50→12:10)
[2019-07-22] MEDS: TETRACAINE HCL 0.5% OPH SOLN 4 ML OS PRN ×2 (11:50→12:23)
[2019-07-22] MEDS ORDERED: MIDAZOLAM 2 MG/2 ML INJ ONE ×2 (12:01→12:11)
[2019-07-22] MEDS ORDERED: FENTANYL CITRATE INJ/PF 100 MCG/2 ML AMPUL ONE (12:01)
[2019-07-22] MEDS: DORZOLAMIDE HCL 2%/TIMOLOL MALEAT 0.5% OPH SOLN 10 ML OS PRN ×2 (12:34→12:39)
[2019-07-22] MEDS: TOBRAMYCIN SULFATE/DEXAMETH OPH OINTMENT 3.5 GM ONE ×2 (12:34→12:39)
== END 2019-07-22 13:18 | disposition home or self-care (01) ==
LOC: SC 10:52
PROVIDERS: ATTEND Ophthalmology
DX: H25.12 Age-related nuclear cataract, left eye (principal); Z98.41 Cataract extraction status, right eye; F17.210 Nicotine dependence, cigarettes, uncomplicated; K21.9 Gastro-esophageal reflux disease without esophagitis; J44.9 Chronic obstructive pulmonary disease, unspecified; E78.00 Pure hypercholesterolemia, unspecified; I11.0 Hypertensive heart disease with heart failure; I50.9 Heart failure, unspecified; K70.30 Alcoholic cirrhosis of liver without ascites; I42.9 Cardiomyopathy, unspecified
CPT/HCPCS: 66984; 00142; V2632; J2250; J3490 ×3; J0171; J3010; J2370; 142

== ENCOUNTER 2019-08-31 15:33 | Emergency (ER) | payer MEDICARE, OTHER ==
[2019-08-31] MEDS ORDERED: KETOROLAC TROMETHAMINE INJ/PF 30 MG/1 ML SDV IM ONE (16:19)
[2019-08-31] MEDS ORDERED: OXYCODONE HCL IR 5 MG TABLET PO ONE (16:19)
--- NOTE | 2019-08-31 16:22 | ER Document Report ---
ED Medical Screen (RME) - General Chief Complaint: Neck Pain >24hrs old Stated Complaint: NECK PAIN Time Seen by Provider: 08/31/19 16:14 Primary Care Provider: REGGIE,RAVI [Primary Care Provider] - Follow up as needed TRAVEL OUTSIDE OF THE [place] IN LAST 30 DAYS: No - HPI Notes: 08/31/19 16:19 Patient is a 69-year-old male with an extensive cardiac history including congestive heart failure and hypertension who presents complaining of right lateral neck soreness after being on a hospital bed for 4 to 5 days in [place] last week. Pt states that the beds were uncomfortable which precipitated his neck pain. Patient states that he has had some right-sided neck pain that is sharp and worse with twisting movements and pushing on the right side over the past 3 days. Pain does not radiate. Patient states that he is otherwise at baseline with his cardiopulmonary symptoms. No recent illness or fever otherwise. No other obvious injury. I have treated and performed a rapid initial assessment of this patient. A comprehensive ED assessment and evaluation of the patient, analysis of test results and completion of medical decision making process will be conducted by additional ED providers. PHYSICAL EXAMINATION: GENERAL: Well-appearing, well-nourished and in no acute distress. A&Ox4. Answers questions appropriately. Neck: FROM. Strength 5+/5. N/V intact distal. Spurling negative. + reproducible tenderness to palp rt c-paraspinal mm and to sternocleidomastoid muscle. No mastoid tenderness. Also reproduced with ROM. No bony tenderness. - Related Data Allergies/Adverse Reactions: bee venom protein (honey bee) Allergy (Unknown, Verified 08/31/19 16:07) morphine Allergy (Verified 08/31/19 16:07) bee stings Allergy (Uncoded 08/31/19 16:07) Past Medical History - Social History Chew tobacco use (# tins/day): No Frequency of alcohol use: None Drug Abuse: None - Past Medical History Cardiac Medical History: Reports: Hx Congestive Heart Failure, Hx Heart Attack - SILENT ?, Hx Hypercholesterolemia, Hx Hypertension, Hx Peripheral Vascular Disease Denies: Hx DVT, Hx Pulmonary Embolism Pulmonary Medical History: Denies: Hx Asthma, Hx COPD Neurological Medical History: Denies: Hx Cerebrovascular Accident, Hx Seizures Endocrine Medical History: Denies: Hx Diabetes Mellitus Type 1, Hx Diabetes Mellitus Type 2, Hx Hyperthyroidism, Hx Hypothyroidism Renal/ Medical History: Denies: Hx Peritoneal Dialysis GI Medical History: Reports: Hx Cirrhosis, Hx Gastroesophageal Reflux Disease, Hx Hiatal Hernia. 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 Denies: Hx Open Heart Surgery, Hx Pacemaker - Immunizations Hx Diphtheria, Pertussis, Tetanus Vaccination: Yes History of Influenza Vaccine for 09/2017 - 01/2018 Season: Refused Physical Exam - Vital signs Vitals: Temp Pulse Resp BP Pulse Ox 98.1 F 61 18 120/71 96 08/31/19 15:45 08/31/19 15:45 08/31/19 15:45 08/31/19 15:45 08/31/19 15:45 Course - Vital Signs Vital signs: Temp Pulse Resp BP Pulse Ox 98.1 F 61 18 120/71 96 08/31/19 15:45 08/31/19 15:45 08/31/19 15:45 08/31/19 15:45 08/31/19 15:45 Doctor's Discharge - Discharge Referrals: [facility] [[facility]] - Follow up as needed
[2019-08-31 18:31] VITALS: BP 117/68
[2019-08-31] MEDS ORDERED: LIDOCAINE 5% (700 MG) TRANSDERMAL ADH..PATCH TP ONE (18:31)
--- NOTE | 2019-08-31 18:33 | ER Document Report ---
HPI - HPI Patient complains to provider of: Right-sided neck pain Time Seen by Provider: 08/31/19 16:14 Onset: Other - 3 days Quality of pain: Achy Pain Level: 5 Context: Patient presents complaining of right side neck pain for the past 3 days. Patient suspects that he may have slept on the area wrong and that has caused his pain. Patient denies any fever or trauma. Associated Symptoms: Other - Neck pain. denies: Fever, Headache Exacerbated by: Movement Relieved by: Denies Similar symptoms previously: No Recently seen / treated by doctor: Yes - ROS ROS below otherwise negative: Yes Systems Reviewed and Negative: Yes All other systems reviewed and negative - CONSTITUTIONAL Constitutional: DENIES: Fever - EENT EENT: DENIES: Sore Throat - NEURO Neurology: DENIES: Headache - CARDIOVASCULAR Cardiovascular: DENIES: Chest pain - GASTROINTESTINAL Gastrointestinal: DENIES: Nausea - MUSCULOSKELETAL Musculoskeletal: REPORTS: Neck Pain - DERM Skin Color: Normal Past Medical History - General Information source: Patient - Social History Smoking Status: Current Every Day Smoker Chew tobacco use (# tins/day): No Smoking Education Provided: Yes Frequency of alcohol use: None Drug Abuse: None Lives with: Family Family History: CAD, Reviewed & Not Pertinent Patient has suicidal ideation: No Patient has homicidal ideation: No - Past Medical History Cardiac Medical History: Reports: Hx Congestive Heart Failure, Hx Heart Attack - SILENT ?, Hx Hypercholesterolemia, Hx Hypertension, Hx Peripheral Vascular Disease Denies: Hx DVT, Hx Pulmonary Embolism Pulmonary Medical History: Denies: Hx Asthma, Hx COPD Neurological Medical History: Denies: Hx Cerebrovascular Accident, Hx Seizures Endocrine Medical History: Denies: Hx Diabetes Mellitus Type 1, Hx Diabetes Mellitus Type 2, Hx Hyperthyroidism, Hx Hypothyroidism Renal/ Medical History: Denies: Hx Peritoneal Dialysis GI Medical History: Reports: Hx Cirrhosis, Hx Gastroesophageal Reflux Disease, Hx Hiatal Hernia. 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 Denies: Hx Open Heart Surgery, Hx Pacemaker - Immunizations Hx Diphtheria, Pertussis, Tetanus Vaccination: Yes Vertical Provider Document - CONSTITUTIONAL Agree With Documented VS: Yes Exam Limitations: No Limitations General Appearance: WD/WN, No Apparent Distress - INFECTION CONTROL TRAVEL OUTSIDE OF THE [place] IN LAST 30 DAYS: No - HEENT HEENT: Atraumatic, Normocephalic - NECK Neck: Supple. negative: Lymphadenopathy-Left, Lymphadenopathy-Right Notes: Tenderness along right sternocleidomastoid muscle. Patient does have some discrete erythematous papular lesions to the right lateral side of his neck and postauricular area - RESPIRATORY Respiratory: Breath Sounds Normal, No Respiratory Distress - CARDIOVASCULAR Cardiovascular: Regular Rate, Regular Rhythm - MUSCULOSKELETAL/EXTREMETIES Musculoskeletal/Extremeties: MAEW - NEURO Level of Consciousness: Awake, Alert, Appropriate Motor/Sensory: No Motor Deficit - DERM Integumentary: Warm, Dry, Abscess - Papular lesions to the postauricular area and right lateral neck area Course - Re-evaluation Re-evalutation: 08/31/19 18:30 Patient does have reproducible tenderness to right lateral side of neck with lateral rotation. No concern for meningitis. Patient does have faint rash to this area worrisome for possible shingles at this time. - Vital Signs Vital signs: Temp Pulse Resp BP Pulse Ox 98.1 F 61 18 120/71 96 08/31/19 15:45 08/31/19 15:45 08/31/19 15:45 08/31/19 15:45 08/31/19 15:45 Discharge - Discharge Clinical Impression: Neck pain Shingles Qualifiers: Herpes zoster complications: without complications Qualified Code(s): B02.9 - Zoster without complications Cervical strain, acute Qualifiers: Encounter type: initial encounter Qualified Code(s): S16.1XXA - Strain of muscle, fascia and tendon at neck level, initial encounter Condition: Stable Disposition: HOME, SELF-CARE Instructions: Neck Injury (Cervical Strain) ([facility]), Oral Narcotic Medication ([facility]), Shingles ([facility]) Additional Instructions: Return immediately for any new or worsening symptoms Followup with your primary care provider, call tomorrow to make a followup appointment Prescriptions: Oxycodone HCl [Oxy-Ir 5 mg Tablet] 5 mg PO Q6HP PRN #12 tab PRN Reason: Lidocaine [Lidoderm 5% (700 mg) Transdermal Patch] 1 patch TP DAILY PRN #10 adh..patch PRN Reason: Valacyclovir HCl [Valacyclovir] 1,000 mg PO TID #21 tablet Forms: Smoking Cessation Education Referrals: [facility] [[facility]] - Follow up as needed
== END 2019-08-31 18:41 | disposition home or self-care (01) ==
LOC: ER 15:33
DX: S16.1XXA Strain of muscle, fascia and tendon at neck level, initial encounter (principal); B02.9 Zoster without complications; X58.XXXA Exposure to other specified factors, initial encounter; F17.200 Nicotine dependence, unspecified, uncomplicated; I50.9 Heart failure, unspecified; I25.2 Old myocardial infarction; E78.00 Pure hypercholesterolemia, unspecified; I11.0 Hypertensive heart disease with heart failure
CPT/HCPCS: 99283; 96372; J1885

== ENCOUNTER 2020-01-06 10:04 | Emergency (ER) | payer OTHER ==
--- NOTE | 2020-01-06 11:25 | ER Document Report ---
ED Medical Screen (RME) - General Chief Complaint: Leg Swelling Stated Complaint: LEG SWELLING Time Seen by Provider: 01/06/20 11:20 Primary Care Provider: RAVI PAREDES [Primary Care Provider] - Follow up as needed Notes: HPI: 69-year-old male with CHF history presenting to the emergency department complaining of 2 weeks of progressively worsening swelling of the right lower leg with discomfort. No fever. No new shortness of breath. Patient was referred over to the emergency department by PCP for evaluation of possible DVT I have greeted and performed a rapid initial assessment of this patient. A comprehensive ED assessment and evaluation of the patient, analysis of test results and completion of the medical decision making process will be conducted by additional ED providers PHYSICAL EXAMINATION: GENERAL: Well-appearing, well-nourished and in no acute distress. HEAD: Atraumatic, normocephalic. EYES: sclera anicteric, conjunctiva are normal. ENT: Moist mucous membranes. NECK: Normal range of motion LUNGS: Normal work of breathing, lung sounds decreased but otherwise clear to auscultation HEART: 2+ radial pulses bilaterally, regular rate and rhythm ABD: limited by positioning for exam in triage. EXTREMITIES: Significant edema to the right lower extremity extending from the knee through the foot. Slight overlying erythema but no increased warmth to touch NEUROLOGICAL: No focal neurological deficits. Moves all extremities spontaneously and on command. PSYCH: Normal mood, normal affect. SKIN: Warm, Dry, normal turgor, no rashes or lesions noted. TRAVEL OUTSIDE OF THE [place] IN LAST 30 DAYS: No - Related Data Allergies/Adverse Reactions: bee venom protein (honey bee) Allergy (Unknown, Verified 08/31/19 16:07) morphine Allergy (Verified 08/31/19 16:07) bee stings Allergy (Uncoded 08/31/19 16:07) Past Medical History - Past Medical History Cardiac Medical History: Reports: Hx Congestive Heart Failure, Hx Heart Attack - SILENT ?, Hx Hypercholesterolemia, Hx Hypertension, Hx Peripheral Vascular Disease Denies: Hx DVT, Hx Pulmonary Embolism Pulmonary Medical History: Denies: Hx Asthma, Hx COPD Neurological Medical History: Denies: Hx Cerebrovascular Accident, Hx Seizures Endocrine Medical History: Denies: Hx Diabetes Mellitus Type 1, Hx Diabetes Mellitus Type 2, Hx Hyperthyroidism, Hx Hypothyroidism Renal/ Medical History: Denies: Hx Peritoneal Dialysis GI Medical History: Reports: Hx Cirrhosis, Hx Gastroesophageal Reflux Disease, Hx Hiatal Hernia. 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 Denies: Hx Open Heart Surgery, Hx Pacemaker - Immunizations Hx Diphtheria, Pertussis, Tetanus Vaccination: Yes Physical Exam - Vital signs Vitals: Temp Pulse Resp BP Pulse Ox 97.7 F 70 24 H 117/55 L 97 01/06/20 11:08 01/06/20 11:08 01/06/20 11:08 01/06/20 11:08 01/06/20 11:08 Course - Vital Signs Vital signs: Temp Pulse Resp BP Pulse Ox 97.7 F 70 24 H 117/55 L 97 01/06/20 11:08 01/06/20 11:08 01/06/20 11:08 01/06/20 11:08 01/06/20 11:08 Doctor's Discharge - Discharge Referrals: [facility] [[facility]] - Follow up as needed
[2020-01-06 12:52] LABS: ABSOLUTE BASOPHILS # (AUTO) 0.1 10^3/uL (0.0-0.2); ABSOLUTE EOSINOPHILS # (AUTO) 0.2 10^3/uL (0.0-0.6); ABSOLUTE LYMPHOCYTES (AUTO) 1.7 10^3/uL (0.5-4.7); ABSOLUTE NEUT (AUTO) 6.6 10^3/uL (1.7-8.2); BASOPHILS % (AUTO) 0.6 % (0-2); EOSINOPHILS % (AUTO) 2.6 % (0-6); HEMATOCRIT 39.4 % (37.9-51.0); HEMOGLOBIN 13.5 g/dL (13.5-17.0); LYMPHOCYTES % (AUTO) 17.2 % (13-45); MEAN CORPUSCULAR HEMOGLOBIN 34.6 pg (27.0-33.4); MEAN CORPUSCULAR HGB CONC 34.2 g/dL (32.0-36.0); MEAN CORPUSCULAR VOLUME 101 fl (80-97); MONOCYTES % (AUTO) 10.8 % (3-13); PLATELET COUNT 171 10^3/uL (150-450); RED CELL DISTRIBUTION WIDTH 14.5 % (11.5-14.0); SEGMENTED NEUTROPHILS % (AUTO) 68.8 % (42-78); TOTAL CELLS COUNTED % (AUTO) 100 %; WHITE BLOOD COUNT 9.6 10^3/uL (4.0-10.5)
[2020-01-06 12:55] LABS: INTERNATIONAL RATION (INR) 1.19; PROTHROMBIN TIME 15.2 SEC (11.4-15.4)
[2020-01-06 13:09] LABS: ALKALINE PHOSPHATASE 101 U/L (38-126); ANION GAP 5 (5-19); ASPARTATE AMINO TRANSFERASE 47 U/L (17-59); BILIRUBIN,DIRECT 0.1 mg/dL (0.0-0.4); BILIRUBIN,TOTAL 2.4 mg/dL (0.2-1.3); BLOOD UREA NITROGEN 10 mg/dL (7-20); CALCIUM 8.4 mg/dL (8.4-10.2); CARBON DIOXIDE 26 mmol/L (22-30); CHLORIDE 107 mmol/L (98-107); GLUCOSE 86 mg/dL (75-110); POTASSIUM 4.1 mmol/L (3.6-5.0); TOTAL PROTEIN 6.7 g/dL (6.3-8.2)
[2020-01-06] MEDS ORDERED: FUROSEMIDE 80 MG TABLET PO ONE (14:53)
[2020-01-06] MEDS ORDERED: CEFTRIAXONE INJ 1000 MG VIAL IM ONE (14:53)
--- NOTE | 2020-01-06 14:54 | ER Document Report ---
ED General - General Chief Complaint: Leg Swelling Stated Complaint: LEG SWELLING Time Seen by Provider: 01/06/20 11:20 Primary Care Provider: RAVI PAREDES [Primary Care Provider] - Follow up as needed Notes: Patient is a 69-year-old white male with a past medical history of CHF and cirrhosis of the liver with a shunt who presents to the emergency department with a chief complaint of a swollen red painful right lower extremity. He admits that the right lower extremity is chronically swollen. He states that over the past 2 weeks it is gotten worse and is red and painful. He saw his doctor yesterday who advised he come to the emergency department to rule out DVT. Patient denies history of DVT. Denies any fever, nausea, vomiting, diarrhea, chills, night sweats. TRAVEL OUTSIDE OF THE [place] IN LAST 30 DAYS: No - Related Data Allergies/Adverse Reactions: bee venom protein (honey bee) Allergy (Unknown, Verified 08/31/19 16:07) morphine Allergy (Verified 08/31/19 16:07) bee stings Allergy (Uncoded 08/31/19 16:07) Past Medical History - Social History Smoking Status: Never Smoker Family History: CAD, Reviewed & Not Pertinent Patient has suicidal ideation: No Patient has homicidal ideation: No - Past Medical History Cardiac Medical History: Reports: Hx Congestive Heart Failure, Hx Heart Attack - SILENT ?, Hx Hypercholesterolemia, Hx Hypertension, Hx Peripheral Vascular Disease Denies: Hx DVT, Hx Pulmonary Embolism Pulmonary Medical History: Denies: Hx Asthma, Hx COPD Neurological Medical History: Denies: Hx Cerebrovascular Accident, Hx Seizures Endocrine Medical History: Denies: Hx Diabetes Mellitus Type 1, Hx Diabetes Mellitus Type 2, Hx Hyperthyroidism, Hx Hypothyroidism Renal/ Medical History: Denies: Hx Peritoneal Dialysis GI Medical History: Reports: Hx Cirrhosis, Hx Gastroesophageal Reflux Disease, Hx Hiatal Hernia. 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 Denies: Hx Open Heart Surgery, Hx Pacemaker - Immunizations Hx Diphtheria, Pertussis, Tetanus Vaccination: Yes Review of Systems - Review of Systems Musculoskeletal: Leg swelling Skin: Change in color -: Yes All other systems reviewed and negative Physical Exam - Vital signs Vitals: Temp Pulse Resp BP Pulse Ox 97.7 F 70 24 H 117/55 L 97 01/06/20 11:08 01/06/20 11:08 01/06/20 11:08 01/06/20 11:08 01/06/20 11:08 - General General appearance: Appears well, Alert - Respiratory Respiratory status: No respiratory distress Chest status: Nontender Breath sounds: Normal Chest palpation: Normal - Cardiovascular Rhythm: Regular Heart sounds: Normal auscultation - Extremities General lower extremity: Other - Moderate pitting edema 3+ to the right lower extremity. The distal anterior extremity is mildly erythematous with increased warmth. Consistent with a cellulitis. - Neurological Neuro grossly intact: Yes Cognition: Normal Orientation: AAOx4 Ely Coma Scale Eye Opening: Spontaneous Ely Coma Scale Verbal: Oriented Ely Coma Scale Motor: Obeys Commands Ely Coma Scale Total: 15 Speech: Normal Sensory: Normal - Psychological Associated symptoms: Normal affect, Normal mood - Skin Skin Temperature: Warm Skin Moisture: Dry Skin Color: Normal Course - Re-evaluation Re-evalutation: 01/06/20 14:54 DVT study negative. 01/06/20 14:54 Normal white blood cell count. Patient afebrile. Given a gram of Rocephin IM here, and Lasix p.o. 60 mg. He will call his doctor discuss possibly increasing his Terosemide over the next few days during his treatment with antibiotics. I counseled him regarding utilizing his compression stockings and elevation, he states he was not previously utilizing these things in combination with his Terosemide. Discussed with him the importance of outpatient follow-up and advised to return here or any ER immediately with any new, persistent or worseni ng symptoms. He verbalized understood and agreed. - Vital Signs Vital signs: Temp Pulse Resp BP Pulse Ox 97.7 F 70 24 H 117/55 L 97 01/06/20 11:08 01/06/20 11:08 01/06/20 11:08 01/06/20 11:08 01/06/20 11:08 - Laboratory Result Diagrams: 01/06/20 12:30 01/06/20 12:30 Laboratory results interpreted by me: 01/06/20 01/06/20 12:30 12:30 RBC 3.90 L MCV 101 H MCH 34.6 H RDW 14.5 H Total Bilirubin 2.4 H Albumin 3.0 L Discharge - Discharge Clinical Impression: Leg edema Cellulitis Qualifiers: Site of cellulitis: other site Qualified Code(s): L03.818 - Cellulitis of other sites Condition: Stable Disposition: HOME, SELF-CARE Instructions: Cellulitis ([facility]), Edema, Peripheral ([facility]) Prescriptions: Cephalexin Monohydrate [Keflex 500 mg Capsule] 500 mg PO Q6H 10 Days #40 capsule Referrals: [facility] [Primary Care Provider] - Follow up as needed
[2020-01-06] MEDS ORDERED: FUROSEMIDE 20 MG TABLET PO ONE (15:15)
[2020-01-06 15:18] VITALS: BP 108/64
[2020-01-06] MEDS ORDERED: LIDOCAINE 1% INJ-PF (10 MG/ML) 30 ML SDV ONE (15:24)
--- NOTE | 2020-01-06 16:24 | XCELERA REPORT ---
[address] [place] [facility] [id number] Lower Extremity Venous Evaluation Procedure: Color flow and duplex imaging of the veins of the right lower extremity as well as the left Common Femoral vein. Right Sided Venous Evaluation Normal vessel filling wall to wall, compression and augmentation as well as Colour flow down to the infrageniculate veins. Left Sided Venous Evaluation The left common femoral vein is fully compressible. Spontaneous and phasic flow is present in the left common femoral vein. Interpretation Summary No duplex evidence of DVT or obstruction in the right lower extremity nor in the left Common Femoral vein. Name: LAUREN JAIMES Age: 69 yrs Gender: Male : 1950 Patient Status: Emergency Patient Location: ER Study Date: 01/06/2020 11:56 AM Reason For Study: right leg swelling r/o dvt Ordering Physician: SYLVIE SIDHU Performed By: Verito James : SYLVIE SIDHU > Danis Monique
== END 2020-01-06 15:39 | disposition home or self-care (01) ==
LOC: ER 10:04
DX: L03.818 Cellulitis of other sites (principal); R60.0 Localized edema; M79.604 Pain in right leg; Z88.8 Allergy status to other drugs, medicaments and biological substances; I50.9 Heart failure, unspecified; I25.2 Old myocardial infarction; I11.0 Hypertensive heart disease with heart failure
CPT/HCPCS: 99284; 96372; 36415; 85025; 85610; 80053; 93971 ×2; J3490; J0696